=== PATIENT | male | born 1935 | race Two or more races ===

== ENCOUNTER 2022-04-17 09:15 | Day surgery (SDC) | payer OTHER ==
[2022-04-11 11:32] LABS: Absolute Lymphocytes (CBC) 1.1 K/uL (0.7-4.9); Hematocrit 39.5 % (39.6-49.0); Lymphocytes % 18.5 % (15.3-44.8); MCV 94.1 fL (80-100); MPV 8.9 fL (7.6-11.3)
[2022-04-11 11:33] LABS: Protime INR 1.1
[2022-04-11 11:43] LABS: Potassium 3.3 mmol/L (3.5-5.1)
[2022-04-17] MEDS ORDERED: NA CHLORIDE 0.9% 1,000 ML ONE (09:40)
[2022-04-17] MEDS ORDERED: CEFAZOLIN SODIUM 2 GM/VIAL ONE (09:40)
[2022-04-17] MEDS ORDERED: FENTANYL CITR 100 MCG/2 ML ONE (10:54)
[2022-04-17] MEDS ORDERED: ONDANSETRON 4 MG/2 ML VIAL ONE (10:55)
[2022-04-17] MEDS ORDERED: LIDOCAINE 1% MPF 5 ML VIAL ONE (10:55)
[2022-04-17] MEDS ORDERED: propofoL 200 MG/20 ML VIAL IV ONE (10:55)
[2022-04-17] MEDS ORDERED: PHENAZOPYRIDINE 100MG TAB PO ONE ×2 (11:24→12:57)
[2022-04-17] MEDS ORDERED: CODEINE 30MG/APAP 300MG TAB PO PRN (11:24)
[2022-04-17 12:50] VITALS: BP 143/79; TEMP 97.7; O2SAT 95
[2022-04-17] MEDS ORDERED: CODEINE 30MG/APAP 300MG TAB ONE (12:57)
--- NOTE | 2022-04-17 19:39 | OP ---
Surgeon: FABIOLA SOTELO Preoperative Diagnosis: Benign prostatic hypertrophy with lower urinary tract obstruction and sympto ms. Postoperative Diagnosis: Benign prostatic hypertrophy with lower urinary tract obstruction and sympt oms. Principal Procedure: Prostatic urethral lift/UroLift with 8 implants placed. Indication For Procedure: Mr. Snider is an 86-year-old gentleman with persistent irritative and obst ructive urinary symptoms refractory to triple medical therapy with both Flomax and finasteride as wel l as VESIcare. He was counseled on options to eliminate the obstruction and try to further improve h is LUTS and elected to proceed with the UroLift once he was determined to be a potential candidate. Procedure In Detail: The patient was consented in the preoperative holding area before being transfe rred to the operative suite, where general anesthesia was induced. He was given Ancef 2 g IV antimic robial prophylaxis and Pneumoboots were provided for DVT prophylaxis. He was placed in the lithotomy position, padded, secured to the table appropriately. His genitalia was prepped with Hibiclens and he was draped in standard fashion. The case was begun using the 20-Slovenian UroLift obturator to trave rse the urethra and into the bladder with ease. As had previously been noted, there was significant interdigitating lateral lobar hypertrophy as well as a slight median lobe with a sulcus present on th e right side. The lobe was not significantly intravesically projecting and was simply within the pro static urethra largely. As a result, I began by selecting the first implant site targeting the left anterolateral surface of his prostatic urethra about 1.5 cm distal to the bladder neck. The trigger was pulled deploying a needle containing the implant through the prostate before additional tensionin g before compression beyond the initial 10 degrees was performed in order to delivery of the needle a ll the way through the capsule of the prostate. A second hole of the trigger deployed the capsular t ab before the third pole performed additional tensioning of the suture and the device. The device wa s then angled back toward midline and advanced about 2 to 3 mm until the white of the monofilament wa s centered in the delivery Milam before the fourth trigger pole delivered the urethral implant to the m onofilament and severed the monofilament, tailoring the size of the monofilament accordingly. Visual survey revealed adequate tissue invagination of the implant with a margin of tissue between the impl ant and the bladder neck of at least 0.5 cm. As a result, I readvanced the delivery device into the bladder and switched it for a new urolith delivery device before placing a similar implant 1.5 cm dis nik to the bladder neck on the right side this time. I then placed 2 additional implants at the apex of the prostate at the level of the verumontanum on both the left and the right side successfully. I then observed the prostatic urethral channel using a visual obturator and determined there was some lateral lobar urethral lumen intrusion largely coming from the right lateral lobe in the mid gland p ortion of the prostate in addition to the residual median lobar tissue, which was largely emanating f rom the left side of his prostate. As a result, I placed an additional implant, this time the fifth, in the mid gland tissue anterolaterally on the right side, lateralizing that tissue accordingly. I then utilized a 6th implant targeting the median lobe and lateralizing it completely and successfully at the bladder neck with the 6th implant. I then surveyed the prostatic urethral channel again, and there was noted to be some anterolateral overhang largely emanating from the left side of the prosta te, so a seventh implant was targeted for that tissue between the bladder neck implant and the apical implant this time more anterior in order to further lift that anterior tissue. This was successfull y performed and did open the bladder neck nicely. Upon survey of the channel again using a visual ob turator, there was some residual tissue emanating from the left lateral surface of the prostate betwe en the apex in the mid gland; so a safe implant was placed into that tissue lateralizing it according ly and creating a nice continuous anterior channel from the verumontanum seen through into the bladde r with the bladder completely decompressed and fluid exiting from the scope. As a result, I was plea sed with the clinical appearance and in fact filled his bladder with saline before removing the scope with the visual obturator. I then passed a 20-Slovenian 2-way Jean Baptiste catheter into his bladder with eas e and placed 20 cc of sterile water in the balloon. The patient was then taken out of the lithotomy position, the catheter was connected to a leg bag, and he was awakened from general anesthesia before being transferred to a stretcher and then to the recovery room in good condition. Complications: None. Discharge Disposition: He will be discharged with a prescription for Bactrim as well as Tylenol with Codeine and Medrol DosePak given the significant detrusor instability he had preexisting in order to minimize the added irritative component of his LUTS. He will be instructed to monitor his urine and resume the Eliquis once the urine is persistently very light pink or clear for at least 24 hours. I f he is uncomfortable resuming it by Saturday or Saturday at the latest, he should notify me at my offi ce for evaluation promptly on Saturday. CAROLE/MODL Voice ID: [id number] Report ID: [id number]
== END 2022-04-17 13:40 | disposition home or self-care (01) ==
LOC: OR 09:15
PROVIDERS: ATTEND Urology
PROC: 3C1ZX8Z Irrigation of Indwelling Device using Irrigating Substance, External Approach (ICD-10-PCS; 2022-04-17)
PROC: 0T7D8DZ Dilation of Urethra with Intraluminal Device, Via Natural or Artificial Opening Endoscopic (ICD-10-PCS; principal; 2022-04-17 11:30)
DX: N40.1 Benign prostatic hyperplasia with lower urinary tract symptoms (principal); I10 Essential (primary) hypertension; E11.9 Type 2 diabetes mellitus without complications; I48.91 Unspecified atrial fibrillation; Z79.01 Long term (current) use of anticoagulants
CPT/HCPCS: 87088; 85025; 87086; 80048; 36415; 85610; 82947 ×2; 52441; 52442 ×7; 51700; J2704; J2001; J3010; J7030; J2405

== ENCOUNTER 2023-05-01 22:08 | Emergency (ER) | payer OTHER ==
--- OUTSIDE RECORDS SUMMARY | 2023-05-01 22:18 | XMS REPORT | Continuity of Care Document ---
Author Name Unknown Address [address] [facility] [address] th[address] Address [address] [facility] 1 [address] [place] [address] Care Team Providers Care Pick Up Attendant Name Role Phone Chris Arechiga Attending Clinician Unavailable Chris Arechiga Admitting Clinician Unavailable Payers Payer Name Policy Type Policy Number Effective Date Expirati on Date Source HUMAN MEDICARE C1 [id number] 2020 00:00:00 [facility] HUMAN MEDICARE C1 [id number] 2020 00:00:00 [facility] Problems Condition Name Condition Details Condition Category Status Onset Date Resolution Date Last Treatment Date Treating Clinician Comments Source Routine eye exam Routine eye exam Problem [facility] [id number] Primary osteoarthr itis of right knee Problem [facility] [id number] Primary osteoarthr itis of left knee Problem [facility] [id number] Type 2 diabetes mellitus with other diabetic kidney complicati on Problem [facility] [id number] Erectile dysfunctio n, unspecifie d erectile dysfunctio n type Problem [facility] Arthritis of both knees Arthritis of both knees Problem [facility] [id number] BPH loc w urin obs/LUTS Problem [facility] [id number] ED (erectile dysfunctio n) of organic origin Problem [facility] [id number] OAB (overactiv e bladder) Problem [facility] [id number] Benign prostatic hyperplasi a with lower urinary tract symptoms, symptom details unspecifie d Problem [facility] [id number] Type 2 diabetes mellitus with hyperglyce christopher, without long-term current use of insulin Problem [facility] [id number] Mixed hyperlipid emia Problem [facility] [id number] Dependence on other enabling machines and devices Problem [facility] [id number] Essential (primary) hypertensi on Problem [facility] [id number] Paroxysmal atrial fibrillati on Problem [facility] [id number] Thrombocyt openia Problem [facility] [id number] Obstructiv e sleep apnea (adult) (pediatric ) Problem [facility] [id number] Primary osteoarthr itis of both knees Problem [facility] [id number] terminal makeup operator (current) use of insulin Problem [facility] [id number] Urinary tract infection, site not specified Problem [facility] [id number] Enterococc us as the cause of diseases classified elsewhere Problem [facility] Social History Social Habit Start Date Stop Date Quantity Comments Source History of Tobacco Use [facility] Sex Assigned At [facility] Smoking Status Start Date Stop Date Source Never Smoker [facility] Medications Ordered Medication Name Filled Medication Name Start Date Stop Date Current Medication? Ordering Clinician Indication Dosage Frequency Signature (SIG) Comments Components Source Bupivicaine [place] Bupivicaine [place] 06-15 00:00: 00 No 2.5mg [facility] Kenalog (Triamcinol one) Kenalog (Triamcinol one) 06-15 00:00: 00 No 40mg [facility] Bupivicaine [place] Bupivicaine [place] 06-15 00:00: 00 No 2.5mg [facility] Kenalog (Triamcinol one) Kenalog (Triamcinol one) 06-15 00:00: 00 No [facility]mg [facility] Bupivicaine [place] Bupivicaine [place] 06-15 00:00: 00 No 2.5mg [facility] Kenalog (Triamcinol one) Kenalog (Triamcinol one) 06-15 00:00: 00 No 40mg [facility] Bupivicaine [place] Bupivicaine [place] 06-15 00:00: 00 No 2.5mg [facility] Kenalog (Triamcinol one) Kenalog (Triamcinol one) 06-15 00:00: 00 No 40mg [facility] Bupivicaine [place] Bupivicaine [place] 06-15 00:00: 00 No 2.5mg [facility] Kenalog (Triamcinol one) Kenalog (Triamcinol one) 06-15 00:00: 00 No 40mg [facility] Bupivicaine [place] Bupivicaine [place] 06-15 00:00: 00 No 2.5mg [facility] Kenalog (Triamcinol one) Kenalog (Triamcinol one) 06-15 00:00: 00 No 40mg [facility] Bupivicaine [place] Bupivicaine [place] 06-15 00:00: 00 No 2.5mg [facility] Kenalog (Triamcinol one) Kenalog (Triamcinol one) 06-15 00:00: 00 No 40mg [facility] Bupivicaine [place] Bupivicaine [place] 0 06-15 00:00: 00 No 2.5mg [facility] Kenalog (Triamcinol one) Kenalog (Triamcinol one) 06-15 00:00: 00 No 40mg [facility] Bupivicaine [place] Bupivicaine [place] 0 1-20 00:00: 00 No 2.5mg [facility] Kenalog (Triamcinol one) Kenalog (Triamcinol one) 0 1-20 00:00: 00 No 40mg [facility] Bupivicaine [place] Bupivicaine [place] 0 1-20 00:00: 00 No 2.5mg [facility] Kenalog (Triamcinol one) Kenalog (Triamcinol one) 0 1-20 00:00: 00 No 40mg [facility] Augmentin 500-125 MG Augmentin 500-125 MG 2021-05 2-07 00:00: 00 05-16 00:00 :00 No 1{table t} TID Augmentin 500-125 MG Augmentin 500-125 MG Augmentin 500-125 MG 2021-05 2-07 00:00: 00 05-16 00:00 :00 No 1{table t} TID Augmentin 500-125 MG Orthovisc Orthovisc 2-0 8-18 00:00: 00 No 15mg [facility] Orthovisc Orthovisc 2-0 8-18 00:00: 00 No 15mg [facility] OrthoVisc OrthoVisc 2-0 8-18 00:00: 00 No 15mg [facility] OrthoVisc OrthoVisc 2-0 8-18 00:00: 00 No 15mg [facility] Orthovisc Orthovisc 2-0 8-18 00:00: 00 No 15mg [facility] OrthoVisc OrthoVisc 2-0 8-18 00:00: 00 No 15mg [facility] OrthoVisc OrthoVisc 2-0 8-18 00:00: 00 No 15mg [facility] OrthoVisc OrthoVisc 2-0 8-18 00:00: 00 No 15mg [facility] OrthoVisc OrthoVisc 2022-0 8-18 00:00: 00 No 15mg [facility] OrthoVisc OrthoVisc 2-0 8-18 00:00: 00 No 15mg [facility] Orthovisc Orthovisc 2-0 8-18 00:00: 00 No 15mg [facility] Orthovisc Orthovisc 2022-0 8-18 00:00: 00 No 15mg [facility] Orthovisc Orthovisc 2022-0 8-18 00:00: 00 No 15mg [facility] Orthovisc Orthovisc 2-0 8-18 00:00: 00 No 15mg [facility] Orthovisc Orthovisc 2022-0 8-18 00:00: 00 No 15mg [facility] Orthovisc Orthovisc 2022-0 8-18 00:00: 00 No 15mg [facility] Orthovisc Orthovisc 2022-0 8-18 00:00: 00 No 15mg [facility] Orthovisc Orthovisc 2022-0 8-18 00:00: 00 No 15mg [facility] Orthovisc Orthovisc 2022-0 8-18 00:00: 00 No 15mg [facility] Orthovisc Orthovisc 2022-0 8-18 00:00: 00 No 15mg [facility] Orthovisc Orthovisc 2022-0 8-18 00:00: 00 No 15mg [facility] Orthovisc Orthovisc 2022-0 8-18 00:00: 00 No 15mg [facility] Orthovisc Orthovisc 2022-0 8-18 00:00: 00 No 15mg [facility] Orthovisc Orthovisc 2022-0 8-18 00:00: 00 No 15mg [facility] Orthovisc Orthovisc 2022-0 8-11 00:00: 00 No 15mg [facility] Orthovisc Orthovisc 2022-0 8-11 00:00: 00 No 15mg [facility] OrthoVisc OrthoVisc 2-0 8-11 00:00: 00 No 15mg [facility] OrthoVisc OrthoVisc 2-0 8-11 00:00: 00 No 15mg [facility] Orthovisc Orthovisc 2-0 8-11 00:00: 00 No 15mg [facility] OrthoVisc OrthoVisc 2-0 8-11 00:00: 00 No 15mg [facility] OrthoVisc OrthoVisc 2-0 8-11 00:00: 00 No 15mg [facility] OrthoVisc OrthoVisc 2-0 8-11 00:00: 00 No 15mg [facility] OrthoVisc OrthoVisc 2022-0 8-11 00:00: 00 No 15mg [facility] OrthoVisc OrthoVisc 2-0 8-11 00:00: 00 No 15mg [facility] Orthovisc Orthovisc 2022-0 8-11 00:00: 00 No 15mg [facility] Orthovisc Orthovisc 2-0 8-11 00:00: 00 No 15mg [facility] Orthovisc Orthovisc 2022-0 8-11 00:00: 00 No 15mg [facility] Orthovisc Orthovisc 2022-0 8-11 00:00: 00 No 15mg [facility] Orthovisc Orthovisc 2022-0 8-11 00:00: 00 No 15mg [facility] Orthovisc Orthovisc 2-0 8-11 00:00: 00 No 15mg [facility] Orthovisc Orthovisc 2022-0 8-11 00:00: 00 No 15mg [facility] Orthovisc Orthovisc 2022-0 8-11 00:00: 00 No 15mg [facility] Orthovisc Orthovisc 2021-0 8-11 00:00: 00 No 15mg [facility] Orthovisc Orthovisc 2021-0 8-11 00:00: 00 No 15mg [facility] Orthovisc Orthovisc 2021-0 8-11 00:00: 00 No 15mg [facility] Orthovisc Orthovisc 2021-0 8-11 00:00: 00 No 15mg [facility] Orthovisc Orthovisc 2021-0 8-11 00:00: 00 No 15mg [facility] Orthovisc Orthovisc 0 8-11 00:00: 00 No 15mg [facility] Orthovisc Orthovisc 2021-0 8-11 00:00: 00 No 15mg [facility] Bupivicaine [place] Bupivicaine [place] 2021-0 8-04 00:00: 00 No 2.5mg [facility] Orthovisc Orthovisc 2021-0 8-04 00:00: 00 No 30mg [facility] Kenalog (Triamcinol one) Kenalog (Triamcinol one) 2021-0 8-04 00:00: 00 No 40mg [facility] Bupivicaine [place] Bupivicaine [place] 2021-0 8-04 00:00: 00 No 2.5mg [facility] Orthovisc Orthovisc 2-0 8-04 00:00: 00 No 30mg [facility] Kenalog (Triamcinol one) Kenalog (Triamcinol one) 2021-0 8-04 00:00: 00 No 40mg [facility] Bupivicaine [place] Bupivicaine [place] 2-0 8-04 00:00: 00 No 2.5mg [facility] OrthoVisc OrthoVisc 2-0 8-04 00:00: 00 No 30mg [facility] Kenalog (Triamcinol one) Kenalog (Triamcinol one) 0 8- 00:00: 00 No 40mg [facility] Bupivicaine [place] Bupivicaine [place] 0 8- 00:00: 00 No 2.5mg [facility] OrthoVisc OrthoVisc 0 8- 00:00: 00 No 30mg [facility] Orthovisc Orthovisc 0 8- 00:00: 00 No 30mg [facility] Kenalog (Triamcinol one) Kenalog (Triamcinol one) 0 8- 00:00: 00 No 40mg [facility] Bupivicaine [place] Bupivicaine [place] 0 8- 00:00: 00 No 2.5mg [facility] Bupivicaine [place] Bupivicaine [place] 0 8- 00:00: 00 No 2.5mg [facility] OrthoVisc OrthoVisc 0 8- 00:00: 00 No 30mg [facility] Kenalog (Triamcinol one) Kenalog (Triamcinol one) 0 8- 00:00: 00 No 40mg [facility] Kenalog (Triamcinol one) Kenalog (Triamcinol one) 0 8- 00:00: 00 No 40mg [facility] Bupivicaine [place] Bupivicaine [place] 0 8- 00:00: 00 No 2.5mg [facility] OrthoVisc OrthoVisc 0 8- 00:00: 00 No 30mg [facility] Kenalog (Triamcinol one) Kenalog (Triamcinol one) 0 8- 00:00: 00 No 40mg [facility] Bupivicaine [place] Bupivicaine [place] 12-28 00:00: 00 No 2.5mg [facility] OrthoVisc OrthoVisc 0 8- 00:00: 00 No 30mg [facility] Kenalog (Triamcinol one) Kenalog (Triamcinol one) 0 8- 00:00: 00 No 40mg [facility] Bupivicaine [place] Bupivicaine [place] 8 00:00: 00 No 2.5mg [facility] OrthoVisc OrthoVisc 0 8- 00:00: 00 No 30mg [facility] Kenalog (Triamcinol one) Kenalog (Triamcinol one) 12-28 00:00: 00 No 40mg [facility] Bupivicaine [place] Bupivicaine [place] 12-28 00:00: 00 No 2.5mg [facility] OrthoVisc OrthoVisc 8- 00:00: 00 No 30mg [facility] Kenalog (Triamcinol one) Kenalog (Triamcinol one) 12-28 00:00: 00 No 40mg [facility] Orthovisc Orthovisc 0 12-28 00:00: 00 No 30mg [facility] Bupivicaine [place] Bupivicaine [place] 12-28 00:00: 00 No 2.5mg [facility] Kenalog (Triamcinol one) Kenalog (Triamcinol one) 8- 00:00: 00 No 40mg [facility] Orthovisc Orthovisc 0 8- 00:00: 00 No 30mg [facility] Bupivicaine [place] Bupivicaine [place] 0 8- 00:00: 00 No 2.5mg [facility] Kenalog (Triamcinol one) Kenalog (Triamcinol one) 12-28 00:00: 00 No 40mg [facility] Orthovisc Orthovisc 0 8- 00:00: 00 No 30mg [facility] Bupivicaine [place] Bupivicaine [place] 0 8 00:00: 00 No 2.5mg [facility] Kenalog (Triamcinol one) Kenalog (Triamcinol one) 0 8- 00:00: 00 No 40mg [facility] Orthovisc Orthovisc 0 8 00:00: 00 No 30mg [facility] Bupivicaine [place] Bupivicaine [place] 8 00:00: 00 No 2.5mg [facility] Kenalog (Triamcinol one) Kenalog (Triamcinol one) 8 00:00: 00 No 40mg [facility] Orthovisc Orthovisc 0 8 00:00: 00 No 30mg [facility] Bupivicaine [place] Bupivicaine [place] 12-28 00:00: 00 No 2.5mg [facility] Kenalog (Triamcinol one) Kenalog (Triamcinol one) 8 00:00: 00 No 40mg [facility] Orthovisc Orthovisc 0 8- 00:00: 00 No 30mg [facility] Bupivicaine [place] Bupivicaine [place] 0 8- 00:00: 00 No 2.5mg [facility] Kenalog (Triamcinol one) Kenalog (Triamcinol one) 0 8- 00:00: 00 No 40mg [facility] Orthovisc Orthovisc 0 8- 00:00: 00 No 30mg [facility] Bupivicaine [place] Bupivicaine [place] 12-28 00:00: 00 No 2.5mg [facility] Kenalog (Triamcinol one) Kenalog (Triamcinol one) 12-28 00:00: 00 No 40mg [facility] Orthovisc Orthovisc 12-28 00:00: 00 No 30mg [facility] Bupivicaine [place] Bupivicaine [place] 12-28 00:00: 00 No 2.5mg [facility] Kenalog (Triamcinol one) Kenalog (Triamcinol one) 12-28 00:00: 00 No 40mg [facility] Orthovisc Orthovisc 12-28 00:00: 00 No 30mg [facility] Bupivicaine [place] Bupivicaine [place] 12-28 00:00: 00 No 2.5mg [facility] Kenalog (Triamcinol one) Kenalog (Triamcinol one) 12-28 00:00: 00 No 40mg [facility] Orthovisc Orthovisc 12-28 00:00: 00 No 30mg [facility] Bupivicaine [place] Bupivicaine [place] 12-28 00:00: 00 No 2.5mg [facility] Kenalog (Triamcinol one) Kenalog (Triamcinol one) 12-28 00:00: 00 No 40mg [facility] Orthovisc Orthovisc 0 8 00:00: 00 No 30mg [facility] Bupivicaine [place] Bupivicaine [place] 0 12-28 00:00: 00 No 2.5mg [facility] Kenalog (Triamcinol one) Kenalog (Triamcinol one) 8- 00:00: 00 No 40mg [facility] Orthovisc Orthovisc 0 - 00:00: 00 No 30mg [facility] Bupivicaine [place] Bupivicaine [place] 12-28 00:00: 00 No 2.5mg [facility] Kenalog (Triamcinol one) Kenalog (Triamcinol one) 8- 00:00: 00 No 40mg [facility] Orthovisc Orthovisc 0 8- 00:00: 00 No 30mg [facility] Orthovisc Orthovisc 0 8 00:00: 00 No 30mg [facility] Bupivicaine [place] Bupivicaine [place] 12-28 00:00: 00 No 2.5mg [facility] Bupivicaine [place] Bupivicaine [place] 12-28 00:00: 00 No 2.5mg [facility] Kenalog (Triamcinol one) Kenalog (Triamcinol one) - 00:00: 00 No 40mg [facility] Kenalog (Triamcinol one) Kenalog (Triamcinol one) 12-28 00:00: 00 No 40mg [facility] Orthovisc Orthovisc 0 8- 00:00: 00 No 30mg [facility] Bupivicaine [place] Bupivicaine [place] 0 12-28 00:00: 00 No 2.5mg [facility] Kenalog (Triamcinol one) Kenalog (Triamcinol one) 0 8- 00:00: 00 No 40mg [facility] Orthovisc Orthovisc 0 8- 00:00: 00 No 30mg [facility] Bupivicaine [place] Bupivicaine [place] 0 8- 00:00: 00 No 2.5mg [facility] Kenalog (Triamcinol one) Kenalog (Triamcinol one) 0 8-04 00:00: 00 No 40mg [facility] Bupivicaine [place] Bupivicaine [place] 0 8-04 00:00: 00 No 2.5mg [facility] Orthovisc Orthovisc 0 8-04 00:00: 00 No 30mg [facility] Kenalog (Triamcinol one) Kenalog (Triamcinol one) 0 8-04 00:00: 00 No 40mg [facility] Tadalafil 20 MG Tadalafil 20 MG 2-0 7- 00:00: 00 07-19 00:00 :00 No Tadalafil 20 MG Tadalafil 20 MG Tadalafil 20 MG 2-0 - 00:00: 00 07-19 00:00 :00 No Tadalafil 20 MG Tadalafil 20 MG Tadalafil 20 MG 2-0 7-28 00:00: 00 07-19 00:00 :00 No Tadalafil 20 MG Tadalafil 20 MG Tadalafil 20 MG 2-0 7-28 00:00: 00 07-19 00:00 :00 No Tadalafil 20 MG Tadalafil 20 MG Tadalafil 20 MG 2-0 7-28 00:00: 00 07-19 00:00 :00 No Tadalafil 20 MG Tadalafil 20 MG Tadalafil 20 MG 2-0 7-28 00:00: 00 07-19 00:00 :00 No Tadalafil 20 MG Tadalafil 20 MG Tadalafil 20 MG 2-0 7-28 00:00: 00 07-19 00:00 :00 No Tadalafil 20 MG Tadalafil 20 MG Tadalafil 20 MG 2-0 -28 00:00: 00 07-19 00:00 :00 No Tadalafil 20 MG Tadalafil 20 MG Tadalafil 20 MG 2-0 -28 00:00: 00 07-19 00:00 :00 No Tadalafil 20 MG Tadalafil 20 MG Tadalafil 20 MG 2-0 7- 00:00: 00 07-19 00:00 :00 No Tadalafil 20 MG Tadalafil 20 MG Tadalafil 20 MG 2-0 12-21 00:00: 00 07-19 00:00 :00 No Tadalafil 20 MG Tadalafil 20 MG Tadalafil 20 MG 2-0 12-21 00:00: 00 07-19 00:00 :00 No Tadalafil 20 MG Tadalafil 20 MG Tadalafil 20 MG 2-0 - 00:00: 00 07-19 00:00 :00 No Tadalafil 20 MG Tadalafil 20 MG Tadalafil 20 MG 2-0 12-21 00:00: 00 07-19 00:00 :00 No Tadalafil 20 MG Tadalafil 20 MG Tadalafil 20 MG 2-0 12-21 00:00: 00 07-19 00:00 :00 No Tadalafil 20 MG Tadalafil 20 MG Tadalafil 20 MG 2-0 12-21 00:00: 00 07-19 00:00 :00 No Tadalafil 20 MG Tadalafil 20 MG Tadalafil 20 MG 2-0 7- 00:00: 00 07-19 00:00 :00 No Tadalafil 20 MG Tadalafil 20 MG Tadalafil 20 MG 2021-0 12-21 00:00: 00 07-19 00:00 :00 No Tadalafil 20 MG Tadalafil 20 MG Tadalafil 20 MG 2-0 7 00:00: 00 07-19 00:00 :00 No Tadalafil 20 MG Tadalafil 20 MG Tadalafil 20 MG 2-0 7- 00:00: 00 07-19 00:00 :00 No Tadalafil 20 MG Tadalafil 20 MG Tadalafil 20 MG 2-0 12-21 00:00: 00 07-19 00:00 :00 No Tadalafil 20 MG Solifenacin Succinate 5 MG Solifenacin Succinate 5 MG 2-0 - 00:00: 00 07-05 00:00 :00 No 1{table t} QD Solifenaci n Succinate 5 MG Solifenacin Succinate 5 MG Solifenacin Succinate 5 MG 2-0 7-28 00:00: 00 07-05 00:00 :00 No 1{table t} QD Solifenaci n Succinate 5 MG Solifenacin Succinate 5 MG Solifenacin Succinate 5 MG 2-0 7-28 00:00: 00 07-05 00:00 :00 No 1{table t} QD Solifenaci n Succinate 5 MG Solifenacin Succinate 5 MG Solifenacin Succinate 5 MG 2-0 7-28 00:00: 00 07-05 00:00 :00 No 1{table t} QD Solifenaci n Succinate 5 MG Solifenacin Succinate 5 MG Solifenacin Succinate 5 MG 2-0 7-28 00:00: 00 07-05 00:00 :00 No 1{table t} QD Solifenaci n Succinate 5 MG Solifenacin Succinate 5 MG Solifenacin Succinate 5 MG 2-0 7-28 00:00: 00 07-05 00:00 :00 No 1{table t} QD Solifenaci n Succinate 5 MG Solifenacin Succinate 5 MG Solifenacin Succinate 5 MG 2021-0 7-28 00:00: 00 07-05 00:00 :00 No 1{table t} QD Solifenaci n Succinate 5 MG Solifenacin Succinate 5 MG Solifenacin Succinate 5 MG 2-0 7-28 00:00: 00 07-05 00:00 :00 No 1{table t} QD Solifenaci n Succinate 5 MG Solifenacin Succinate 5 MG Solifenacin Succinate 5 MG 2-0 7-28 00:00: 00 07-05 00:00 :00 No 1{table t} QD Solifenaci n Succinate 5 MG Solifenacin Succinate 5 MG Solifenacin Succinate 5 MG 2-0 7-28 00:00: 00 07-05 00:00 :00 No 1{table t} QD Solifenaci n Succinate 5 MG Solifenacin Succinate 5 MG Solifenacin Succinate 5 MG 2022-0 28 00:00: 00 07-05 00:00 :00 No 1{table t} QD Solifenaci n Succinate 5 MG Solifenacin Succinate 5 MG Solifenacin Succinate 5 MG 2-0 -28 00:00: 00 07-05 00:00 :00 No 1{table t} QD Solifenaci n Succinate 5 MG Solifenacin Succinate 5 MG Solifenacin Succinate 5 MG 2-0 12-21 00:00: 00 04-20 00:00 :00 No 1{table t} QD Solifenaci n Succinate 5 MG Solifenacin Succinate 5 MG Solifenacin Succinate 5 MG 2-0 12-21 00:00: 00 04-20 00:00 :00 No 1{table t} QD Solifenaci n Succinate 5 MG Solifenacin Succinate 5 MG Solifenacin Succinate 5 MG 2021-0 12-21 00:00: 00 04-20 00:00 :00 No 1{table t} QD Solifenaci n Succinate 5 MG Solifenacin Succinate 5 MG Solifenacin Succinate 5 MG 2021-0 12-21 00:00: 00 04-20 00:00 :00 No 1{table t} QD Solifenaci n Succinate 5 MG Solifenacin Succinate 5 MG Solifenacin Succinate 5 MG 2021-0 12-21 00:00: 00 04-20 00:00 :00 No 1{table t} QD Solifenaci n Succinate 5 MG Solifenacin Succinate 5 MG Solifenacin Succinate 5 MG 2021-0 28 00:00: 00 04-20 00:00 :00 No 1{table t} QD Solifenaci n Succinate 5 MG Solifenacin Succinate 5 MG Solifenacin Succinate 5 MG 2021-0 28 00:00: 00 04-20 00:00 :00 No 1{table t} QD Solifenaci n Succinate 5 MG Solifenacin Succinate 5 MG Solifenacin Succinate 5 MG 2-0 -28 00:00: 00 04-20 00:00 :00 No 1{table t} QD Solifenaci n Succinate 5 MG Solifenacin Succinate 5 MG Solifenacin Succinate 5 MG 2022-0 12-21 00:00: 00 04-20 00:00 :00 No 1{table t} QD Solifenaci n Succinate 5 MG Flomax 0.4 MG Flomax 0.4 MG 2022-0 09-22 00:00: 00 No 2{capsu les} QD Flomax 0.4 MG Flomax 0.4 MG Flomax 0.4 MG 2022-0 09-22 00:00: 00 No 2{capsu les} QD Flomax 0.4 MG Flomax 0.4 MG Flomax 0.4 MG 2022-0 09-22 00:00: 00 No 2{capsu les} QD Flomax 0.4 MG Flomax 0.4 MG Flomax 0.4 MG 2022-0 09-22 00:00: 00 No 2{capsu les} QD Flomax 0.4 MG Flomax 0.4 MG Flomax 0.4 MG 2022-0 09-22 00:00: 00 No 2{capsu les} QD Flomax 0.4 MG Flomax 0.4 MG Flomax 0.4 MG 2022-0 09-22 00:00: 00 No 2{capsu les} QD Flomax 0.4 MG Flomax 0.4 MG Flomax 0.4 MG 2-0 09-22 00:00: 00 No 2{capsu les} QD Flomax 0.4 MG Flomax 0.4 MG Flomax 0.4 MG 2022-0 09-22 00:00: 00 No 2{capsu les} QD Flomax 0.4 MG Flomax 0.4 MG Flomax 0.4 MG 2022-0 09-22 00:00: 00 No 2{capsu les} QD Flomax 0.4 MG Flomax 0.4 MG Flomax 0.4 MG 2022-0 09-22 00:00: 00 No 2{capsu les} QD Flomax 0.4 MG Flomax 0.4 MG Flomax 0.4 MG 2022-0 09-22 00:00: 00 No 2{capsu les} QD Flomax 0.4 MG Flomax 0.4 MG Flomax 0.4 MG 2022-0 09-22 00:00: 00 No 2{capsu les} QD Flomax 0.4 MG Flomax 0.4 MG Flomax 0.4 MG 2-0 29 00:00: 00 No 2{capsu les} QD Flomax 0.4 MG Flomax 0.4 MG Flomax 0.4 MG 2-0 09-22 00:00: 00 No 2{capsu les} QD Flomax 0.4 MG Flomax 0.4 MG Flomax 0.4 MG 2-0 09-22 00:00: 00 03-02 00:00 :00 No 2{capsu les} QD Flomax 0.4 MG Flomax 0.4 MG Flomax 0.4 MG 2-0 09-22 00:00: 00 03-02 00:00 :00 No 2{capsu les} QD Flomax 0.4 MG Flomax 0.4 MG Flomax 0.4 MG 2-0 09-22 00:00: 00 03-02 00:00 :00 No 2{capsu les} QD Flomax 0.4 MG Flomax 0.4 MG Flomax 0.4 MG 2-0 09-22 00:00: 00 03-02 00:00 :00 No 2{capsu les} QD Flomax 0.4 MG Flomax 0.4 MG Flomax 0.4 MG 2-0 09-22 00:00: 00 03-02 00:00 :00 No 2{capsu les} QD Flomax 0.4 MG Flomax 0.4 MG Flomax 0.4 MG 2-0 09-22 00:00: 00 03-02 00:00 :00 No 2{capsu les} QD Flomax 0.4 MG Flomax 0.4 MG Flomax 0.4 MG 2-0 09-22 00:00: 00 03-02 00:00 :00 No 2{capsu les} QD Flomax 0.4 MG Flomax 0.4 MG Flomax 0.4 MG 2-0 09-22 00:00: 00 03-02 00:00 :00 No 2{capsu les} QD Flomax 0.4 MG Flomax 0.4 MG Flomax 0.4 MG 2-0 4- 00:00: 00 03-02 00:00 :00 No 2{capsu les} QD Flomax 0.4 MG Flomax 0.4 MG Flomax 0.4 MG 2-0 09-22 00:00: 03-02 00:00 :00 No 2{capsu les} QD Flomax 0.4 MG Flomax 0.4 MG Flomax 0.4 MG 2-0 09-22 00:00: 03-02 00:00 :00 No 2{capsu les} QD Flomax 0.4 MG Flomax 0.4 MG Flomax 0.4 MG 2-0 09-22 00:00: 03-02 00:00 :00 No 2{capsu les} QD Flomax 0.4 MG Tadalafil 20 MG Tadalafil 20 MG 2-0 4 00:00: 00 04-19 00:00 :00 No Tadalafil 20 MG Tadalafil 20 MG Tadalafil 20 MG 2-0 4-29 00:00: 00 04-19 00:00 :00 No Tadalafil 20 MG Tadalafil 20 MG Tadalafil 20 MG 2-0 4- 00:00: 00 04-19 00:00 :00 No Tadalafil 20 MG Tadalafil 20 MG Tadalafil 20 MG 2-0 4-29 00:00: 00 04-19 00:00 :00 No Tadalafil 20 MG Tadalafil 20 MG Tadalafil 20 MG 2-0 4-29 00:00: 00 04-19 00:00 :00 No Tadalafil 20 MG Tadalafil 20 MG Tadalafil 20 MG 2-0 4-29 00:00: 00 04-19 00:00 :00 No Tadalafil 20 MG Tadalafil 20 MG Tadalafil 20 MG 2-0 4- 00:00: 00 04-19 00:00 :00 No Tadalafil 20 MG Tadalafil 20 MG Tadalafil 20 MG 2-0 4- 00:00: 00 04-19 00:00 :00 No Tadalafil 20 MG Tadalafil 20 MG Tadalafil 20 MG 2022-0 4-29 00:00: 00 04-19 00:00 :00 No Tadalafil 20 MG Tadalafil 20 MG Tadalafil 20 MG 2022-0 4-29 00:00: 00 04-19 00:00 :00 No Tadalafil 20 MG Tadalafil 20 MG Tadalafil 20 MG 2-0 4-29 00:00: 00 04-19 00:00 :00 No Tadalafil 20 MG Tadalafil 20 MG Tadalafil 20 MG 2-0 4-29 00:00: 00 04-19 00:00 :00 No Tadalafil 20 MG Tadalafil 20 MG Tadalafil 20 MG 2-0 4-29 00:00: 00 04-19 00:00 :00 No Tadalafil 20 MG Tadalafil 20 MG Tadalafil 20 MG 2-0 4-29 00:00: 00 04-19 00:00 :00 No Tadalafil 20 MG Tadalafil 20 MG Tadalafil 20 MG 2-0 4-29 00:00: 00 04-19 00:00 :00 No Tadalafil 20 MG Tadalafil 20 MG Tadalafil 20 MG 2-0 4-29 00:00: 00 04-19 00:00 :00 No Tadalafil 20 MG Tadalafil 20 MG Tadalafil 20 MG 2-0 4-29 00:00: 00 04-19 00:00 :00 No Tadalafil 20 MG Tadalafil 20 MG Tadalafil 20 MG 2-0 4-29 00:00: 00 04-19 00:00 :00 No Tadalafil 20 MG Tadalafil 20 MG Tadalafil 20 MG 2-0 4-29 00:00: 00 04-19 00:00 :00 No Tadalafil 20 MG Amoxicillin -Pot Clavulanate 500-125 MG Amoxicillin -Pot Clavulanate 500-125 MG 2020- 2-14 00:00: 00 05-14 00:00 :00 No 1{table t} BID Amoxicilli n-Pot Clavulanat e 500-125 MG Tamsulosin HCl 0.4 MG Tamsulosin HCl 0.4 MG 2020-05 00:00: 00 08-01 00:00 :00 No 1{capsu le} QD Tamsulosin HCl 0.4 MG Tamsulosin HCl 0.4 MG Tamsulosin HCl 0.4 MG 2020-05 00:00: 00 08-01 00:00 :00 No 1{capsu le} QD Tamsulosin HCl 0.4 MG Tamsulosin HCl 0.4 MG Tamsulosin HCl 0.4 MG 2020-05 00:00: 00 08-01 00:00 :00 No 1{capsu le} QD Tamsulosin HCl 0.4 MG Tamsulosin HCl 0.4 MG Tamsulosin HCl 0.4 MG 2020-05 00:00: 00 08-01 00:00 :00 No 1{capsu le} QD Tamsulosin HCl 0.4 MG Tamsulosin HCl 0.4 MG Tamsulosin HCl 0.4 MG 2020-05 00:00: 00 05-25 00:00 :00 No 1{capsu le} QD Tamsulosin HCl 0.4 MG Tamsulosin HCl 0.4 MG Tamsulosin HCl 0.4 MG 2020-05 00:00: 00 05-25 00:00 :00 No 1{capsu le} QD Tamsulosin HCl 0.4 MG Spironolact one Spironolact one No Spironolac tone Carvedilol 25 MG Carvedilol 25 MG No 1{table t_with_ food} BID Carvedilol 25 MG Vitamin B12 Vitamin B12 No Vi tamin B12 metFORMIN HCl ER 500 MG metFORMIN HCl ER 500 MG No 1{table t_with_ evening _meal} QD metFORMIN HCl ER 500 MG Vitamin C Vitamin C No Vitamin C Vitamin D3 Vitamin D3 No Vitamin D3 Eliquis 5 MG Eliquis 5 MG No 1{table t} BID Eliquis 5 MG Vitamin C Vitamin C No Vitamin C Tamsulosin HCl 0.4 MG Tamsulosin HCl 0.4 MG No Tamsulosin HCl 0.4 MG Chlorthalid one 50 MG Chlorthalid one 50 MG No 1{table t_in_ e_sammni ng_with _food} QD Chlorthali done 50 MG Losartan Potassium 50 MG Losartan Potassium 50 MG No Losartan Potassium 50 MG Losartan Potassium 50 MG Losartan Potassium 50 MG No 1{table t} QD Losartan Potassium 50 MG Losartan Potassium 50 MG Losartan Potassium 50 MG No Losartan Potassium 50 MG Spironolact one Spironolact one No Spironolac tone Eliquis 5 MG Eliquis 5 MG No 1{table t} BID Eliquis 5 MG Losartan Potassium 50 MG Losartan Potassium 50 MG No Losartan Potassium 50 MG Losartan Potassium 50 MG Losartan Potassium 50 MG No 1{table t} QD Losartan Potassium 50 MG Tamsulosin HCl 0.4 MG Tamsulosin HCl 0.4 MG No Tamsulosin HCl 0.4 MG Eliquis 2.5 MG Eliquis 2.5 MG No 1{table t} BID Eliquis 2.5 MG Vitamin B12 Vitamin B12 No Vi tamin B12 metFORMIN HCl ER 500 MG metFORMIN HCl ER 500 MG No 1{table t_with_ evening _meal} QD metFORMIN HCl ER 500 MG Chlorthalid one 50 MG Chlorthalid one 50 MG No 1{table t_in e_morni ng_with _food} QD Chlorthali done 50 MG Carvedilol 25 MG Carvedilol 25 MG No 1{table t_with_ food} BID Carvedilol 25 MG Vitamin C Vitamin C No Vitamin C Vitamin D3 Vitamin D3 No Vitamin D3 Vitamin D3 Vitamin D3 No Vitamin D3 Chlorthalid one 50 MG Chlorthalid one 50 MG No 1{table t_in e_morni ng_with _food} QD Chlorthali done 50 MG Vitamin D3 Vitamin D3 No Vitamin D3 Carvedilol 25 MG Carvedilol 25 MG No 1{table t_with_ food} BID Carvedilol 25 MG Vitamin B12 Vitamin B12 No Vi tamin B12 Tamsulosin HCl 0.4 MG Tamsulosin HCl 0.4 MG No Tamsulosin HCl 0.4 MG Chlorthalid one 50 MG Chlorthalid one 50 MG No 1{table t_in e_morni ng_with _food} QD Chlorthali done 50 MG Carvedilol 25 MG Carvedilol 25 MG No 1{table t_with_ food} BID Carvedilol 25 MG metFORMIN HCl ER 500 MG metFORMIN HCl ER 500 MG No 1{table t_with_ evening _meal} QD metFORMIN HCl ER 500 MG Spironolact one 25 MG Spironolact one 25 MG No 1{table t} Spironolac tone 25 MG Eliquis 5 MG Eliquis 5 MG No 1{table t} BID Eliquis 5 MG Carvedilol 25 MG Carvedilol 25 MG No 1{table t_with_ food} BID Carvedilol 25 MG Vitamin D3 Vitamin D3 No Vitamin D3 Carvedilol 25 MG Carvedilol 25 MG No 1{table t_with_ food} BID Carvedilol 25 MG Vitamin B12 Vitamin B12 No Vi tamin B12 metFORMIN HCl ER 500 MG metFORMIN HCl ER 500 MG No 1{table t_with_ evening _meal} QD metFORMIN HCl ER 500 MG Spironolact one 25 MG Spironolact one 25 MG No 1{table t} Spironolac tone 25 MG Chlorthalid one 50 MG Chlorthalid one 50 MG No 1{table t_in_th e_morni ng_with _food} QD Chlorthali done 50 MG Carvedilol 25 MG Carvedilol 25 MG No 1{table t_with_ food} BID Carvedilol 25 MG Vitamin B12 Vitamin B12 No Vi tamin B12 Solifenacin Succinate 5 MG Solifenacin Succinate 5 MG No Solifenaci n Succinate 5 MG Eliquis 5 MG Eliquis 5 MG No 1{table t} BID Eliquis 5 MG Carvedilol 25 MG Carvedilol 25 MG No Carvedilol 25 MG Vitamin D3 Vitamin D3 No Vitamin D3 Eliquis 5 MG Eliquis 5 MG No 1{table t} BID Eliquis 5 MG Spironolact one 25 MG Spironolact one 25 MG No 1{table t} Spironolac tone 25 MG Solifenacin Succinate 5 MG Solifenacin Succinate 5 MG No Solifenaci n Succinate 5 MG Chlorthalid one 50 MG Chlorthalid one 50 MG No Chlorthali done 50 MG Vitamin B12 Vitamin B12 No Vi tamin B12 Carvedilol 25 MG Carvedilol 25 MG No Carvedilol 25 MG Vitamin D3 Vitamin D3 No Vitamin D3 Eliquis 5 MG Eliquis 5 MG No 1{table t} BID Eliquis 5 MG Spironolact one 25 MG Spironolact one 25 MG No 1{table t} Spironolac tone 25 MG Solifenacin Succinate 5 MG Solifenacin Succinate 5 MG No Solifenaci n Succinate 5 MG Chlorthalid one 50 MG Chlorthalid one 50 MG No Chlorthali done 50 MG Vitamin B12 Vitamin B12 No Vi tamin B12 Carvedilol 25 MG Carvedilol 25 MG No Carvedilol 25 MG Vitamin D3 Vitamin D3 No Vitamin D3 Eliquis 5 MG Eliquis 5 MG No 1{table t} BID Eliquis 5 MG Spironolact one 25 MG Spironolact one 25 MG No 1{table t} Spironolac tone 25 MG Solifenacin Succinate 5 MG Solifenacin Succinate 5 MG No Solifenaci n Succinate 5 MG Chlorthalid one 50 MG Chlorthalid one 50 MG No Chlorthali done 50 MG Vitamin B12 Vitamin B12 No Vi tamin B12 Carvedilol 25 MG Carvedilol 25 MG No Carvedilol 25 MG Vitamin D3 Vitamin D3 No Vitamin D3 Eliquis 5 MG Eliquis 5 MG No 1{table t} BID Eliquis 5 MG Spironolact one 25 MG Spironolact one 25 MG No 1{table t} Spironolac tone 25 MG Solifenacin Succinate 5 MG Solifenacin Succinate 5 MG No Solifenaci n Succinate 5 MG Chlorthalid one 50 MG Chlorthalid one 50 MG No Chlorthali done 50 MG Vitamin B12 Vitamin B12 No Vi tamin B12 Carvedilol 25 MG Carvedilol 25 MG No Carvedilol 25 MG Vitamin D3 Vitamin D3 No Vitamin D3 Eliquis 5 MG Eliquis 5 MG No 1{table t} BID Eliquis 5 MG Tamsulosin HCl 0.4 MG Tamsulosin HCl 0.4 MG No Tamsulosin HCl 0.4 MG Spironolact one 25 MG Spironolact one 25 MG No 1{table t} Spironolac tone 25 MG Solifenacin Succinate 5 MG Solifenacin Succinate 5 MG No Solifenaci n Succinate 5 MG Chlorthalid one 50 MG Chlorthalid one 50 MG No Chlorthali done 50 MG Vitamin B12 Vitamin B12 No Vi tamin B12 Vitamin C Vitamin C No Vitamin C Vitamin B12 Vitamin B12 No Vi tamin B12 metFORMIN HCl ER 500 MG metFORMIN HCl ER 500 MG No 1{table t_with_ evening _meal} QD metFORMIN HCl ER 500 MG Carvedilol 25 MG Carvedilol 25 MG No 1{table t_with_ food} BID Carvedilol 25 MG Losartan Potassium 50 MG Losartan Potassium 50 MG No Losartan Potassium 50 MG Vitamin D3 Vitamin D3 No Vitamin D3 Chlorthalid one 50 MG Chlorthalid one 50 MG No 1{table t_in_th e_morni ng_with _food} QD Chlorthali done 50 MG Eliquis 2.5 MG Eliquis 2.5 MG No 1{table t} BID Eliquis 2.5 MG metFORMIN HCl ER 500 MG metFORMIN HCl ER 500 MG No 1{table t_with_ evening _meal} QD metFORMIN HCl ER 500 MG Carvedilol 25 MG Carvedilol 25 MG No 1{table t_with_ food} BID Carvedilol 25 MG metFORMIN HCl ER 500 MG metFORMIN HCl ER 500 MG No metFORMIN HCl ER 500 MG Chlorthalid one 50 MG Chlorthalid one 50 MG No 1{table t_in_ e_morni ng_with _food} QD Chlorthali done 50 MG Vitamin B12 Vitamin B12 No Vi tamin B12 Losartan Potassium 50 MG Losartan Potassium 50 MG No 1{table t} QD Losartan Potassium 50 MG Eliquis 2.5 MG Eliquis 2.5 MG No 1{table t} BID Eliquis 2.5 MG Vitamin D3 Vitamin D3 No Vitamin D3 Vitamin C Vitamin C No Vitamin C metFORMIN HCl ER 500 MG metFORMIN HCl ER 500 MG No 1{table t_with_ evening _meal} QD metFORMIN HCl ER 500 MG Carvedilol 25 MG Carvedilol 25 MG No 1{table t_with_ food} BID Carvedilol 25 MG metFORMIN HCl ER 500 MG metFORMIN HCl ER 500 MG No metFORMIN HCl ER 500 MG Chlorthalid one 50 MG Chlorthalid one 50 MG No 1{table t_in_th e_morni ng_with _food} QD Chlorthali done 50 MG Vitamin B12 Vitamin B12 No Vi tamin B12 Losartan Potassium 50 MG Losartan Potassium 50 MG No 1{table t} QD Losartan Potassium 50 MG Eliquis 2.5 MG Eliquis 2.5 MG No 1{table t} BID Eliquis 2.5 MG Vitamin D3 Vitamin D3 No Vitamin D3 Vitamin C Vitamin C No Vitamin C Eliquis 2.5 MG Eliquis 2.5 MG No 1{table t} BID Eliquis 2.5 MG Carvedilol 25 MG Carvedilol 25 MG No 1{table t_with_ food} BID Carvedilol 25 MG metFORMIN HCl ER 500 MG metFORMIN HCl ER 500 MG No metFORMIN HCl ER 500 MG Chlorthalid one 50 MG Chlorthalid one 50 MG No 1{table t_in_ e_morni ng_with _food} QD Chlorthali done 50 MG Vitamin B12 Vitamin B12 No Vi tamin B12 Losartan Potassium 50 MG Losartan Potassium 50 MG No 1{table t} QD Losartan Potassium 50 MG Vitamin D3 Vitamin D3 No Vitamin D3 metFORMIN HCl ER 500 MG metFORMIN HCl ER 500 MG No 1{table t_with_ evening _meal} QD metFORMIN HCl ER 500 MG Vitamin C Vitamin C No Vitamin C Carvedilol 25 MG Carvedilol 25 MG No 1{table t_with_ food} BID Carvedilol 25 MG Losartan Potassium 50 MG Losartan Potassium 50 MG No 1{table t} QD Losartan Potassium 50 MG Chlorthalid one 50 MG Chlorthalid one 50 MG No 1{table t_in e_morni ng_with _food} QD Chlorthali done 50 MG Eliquis 2.5 MG Eliquis 2.5 MG No 1{table t} BID Eliquis 2.5 MG metFORMIN HCl ER 500 MG metFORMIN HCl ER 500 MG No 1{table t_with_ evening _meal} QD metFORMIN HCl ER 500 MG Vitamin D3 Vitamin D3 No Vitamin D3 Vitamin C Vitamin C No Vitamin C metFORMIN HCl ER 500 MG metFORMIN HCl ER 500 MG No metFORMIN HCl ER 500 MG Vitamin B12 Vitamin B12 No Vi tamin B12 Vitamin D3 Vitamin D3 No Vitamin D3 Vitamin C Vitamin C No Vitamin C Eliquis 2.5 MG Eliquis 2.5 MG No 1{table t} BID Eliquis 2.5 MG Carvedilol 25 MG Carvedilol 25 MG No 1{table t_with_ food} BID Carvedilol 25 MG metFORMIN HCl ER 500 MG metFORMIN HCl ER 500 MG No metFORMIN HCl ER 500 MG metFORMIN HCl ER 500 MG metFORMIN HCl ER 500 MG No 1{table t_with_ evening _meal} QD metFORMIN HCl ER 500 MG Vitamin B12 Vitamin B12 No Vi tamin B12 Losartan Potassium 50 MG Losartan Potassium 50 MG No 1{table t} QD Losartan Potassium 50 MG Chlorthalid one 50 MG Chlorthalid one 50 MG No 1{table t_in_th e_morni ng_with _food} QD Chlorthali done 50 MG metFORMIN HCl ER 500 MG metFORMIN HCl ER 500 MG No metFORMIN HCl ER 500 MG Vitamin D3 Vitamin D3 No Vitamin D3 Vitamin B12 Vitamin B12 No Vi tamin B12 Carvedilol 25 MG Carvedilol 25 MG No 1{table t_with_ food} BID Carvedilol 25 MG Losartan Potassium 50 MG Losartan Potassium 50 MG No Losartan Potassium 50 MG Losartan Potassium 50 MG Losartan Potassium 50 MG No 1{table t} QD Losartan Potassium 50 MG Eliquis 2.5 MG Eliquis 2.5 MG No 1{table t} BID Eliquis 2.5 MG Finasteride 5 MG Finasteride 5 MG No 1{table t} QD Finasterid e 5 MG metFORMIN HCl ER 500 MG metFORMIN HCl ER 500 MG No 1{table t_with_ evening _meal} QD metFORMIN HCl ER 500 MG Vitamin C Vitamin C No Vitamin C Chlorthalid one 50 MG Chlorthalid one 50 MG No 1{table t_in e_morni ng_with _food} QD Chlorthali done 50 MG metFORMIN HCl ER 500 MG metFORMIN HCl ER 500 MG No metFORMIN HCl ER 500 MG Carvedilol 25 MG Carvedilol 25 MG No 1{table t_with_ food} BID Carvedilol 25 MG Finasteride 5 MG Finasteride 5 MG No 1{table t} QD Finasterid e 5 MG Vitamin B12 Vitamin B12 No Vi tamin B12 Chlorthalid one 50 MG Chlorthalid one 50 MG No 1{table t_in e_morni ng_with _food} QD Chlorthali done 50 MG Losartan Potassium 50 MG Losartan Potassium 50 MG No Losartan Potassium 50 MG Vitamin D3 Vitamin D3 No Vitamin D3 Eliquis 2.5 MG Eliquis 2.5 MG No 1{table t} BID Eliquis 2.5 MG metFORMIN HCl ER 500 MG metFORMIN HCl ER 500 MG No 1{table t_with_ evening _meal} QD metFORMIN HCl ER 500 MG Vitamin C Vitamin C No Vitamin C Losartan Potassium 50 MG Losartan Potassium 50 MG No 1{table t} QD Losartan Potassium 50 MG Vitamin B12 Vitamin B12 No Vi tamin B12 Losartan Potassium 50 MG Losartan Potassium 50 MG No Losartan Potassium 50 MG Carvedilol 25 MG Carvedilol 25 MG No 1{table t_with_ food} BID Carvedilol 25 MG Chlorthalid one 50 MG Chlorthalid one 50 MG No 1{table t_in_th e_morni ng_with _food} QD Chlorthali done 50 MG Vitamin D3 Vitamin D3 No Vitamin D3 Vitamin C Vitamin C No Vitamin C Eliquis 2.5 MG Eliquis 2.5 MG No 1{table t} BID Eliquis 2.5 MG Losartan Potassium 50 MG Losartan Potassium 50 MG No 1{table t} QD Losartan Potassium 50 MG Vitamin B12 Vitamin B12 No Vi tamin B12 Vitamin C Vitamin C No Vitamin C Eliquis 2.5 MG Eliquis 2.5 MG No 1{table t} BID Eliquis 2.5 MG Carvedilol 25 MG Carvedilol 25 MG No 1{table t_with_ food} BID Carvedilol 25 MG Vitamin D3 Vitamin D3 No Vitamin D3 Chlorthalid one 50 MG Chlorthalid one 50 MG No 1{table t_in e_morni ng_with _food} QD Chlorthali done 50 MG Losartan Potassium 50 MG Losartan Potassium 50 MG No Losartan Potassium 50 MG metFORMIN HCl ER 500 MG metFORMIN HCl ER 500 MG No 1{table t_with_ evening _meal} QD metFORMIN HCl ER 500 MG Losartan Potassium 50 MG Losartan Potassium 50 MG No 1{table t} QD Losartan Potassium 50 MG Vitamin D3 Vitamin D3 No Vitamin D3 metFORMIN HCl ER 500 MG metFORMIN HCl ER 500 MG No 1{table t_with_ evening _meal} QD metFORMIN HCl ER 500 MG Vitamin C Vitamin C No Vitamin C Carvedilol 25 MG Carvedilol 25 MG No 1{table t_with_ food} BID Carvedilol 25 MG Chlorthalid one 50 MG Chlorthalid one 50 MG No 1{table t_in_ e_morni ng_with _food} QD Chlorthali done 50 MG Eliquis 2.5 MG Eliquis 2.5 MG No 1{table t} BID Eliquis 2.5 MG Losartan Potassium 50 MG Losartan Potassium 50 MG No 1{table t} QD Losartan Potassium 50 MG Losartan Potassium 50 MG Losartan Potassium 50 MG No Losartan Potassium 50 MG Vitamin B12 Vitamin B12 No Vi tamin B12 metFORMIN HCl ER 500 MG metFORMIN HCl ER 500 MG No 1{table t_with_ evening _meal} QD metFORMIN HCl ER 500 MG Vitamin B12 Vitamin B12 No Vi tamin B12 Vitamin C Vitamin C No Vitamin C Chlorthalid one 50 MG Chlorthalid one 50 MG No 1{table t_in e_morni ng_with _food} QD Chlorthali done 50 MG Losartan Potassium 50 MG Losartan Potassium 50 MG No 1{table t} QD Losartan Potassium 50 MG Vitamin D3 Vitamin D3 No Vitamin D3 Carvedilol 25 MG Carvedilol 25 MG No 1{table t_with_ food} BID Carvedilol 25 MG Losartan Potassium 50 MG Losartan Potassium 50 MG No Losartan Potassium 50 MG Eliquis 2.5 MG Eliquis 2.5 MG No 1{table t} BID Eliquis 2.5 MG metFORMIN HCl ER 500 MG metFORMIN HCl ER 500 MG No 1{table t_with_ evening _meal} QD metFORMIN HCl ER 500 MG Vitamin B12 Vitamin B12 No Vi tamin B12 Vitamin C Vitamin C No Vitamin C Chlorthalid one 50 MG Chlorthalid one 50 MG No 1{table t_in e_morni ng_with _food} QD Chlorthali done 50 MG Losartan Potassium 50 MG Losartan Potassium 50 MG No 1{table t} QD Losartan Potassium 50 MG Vitamin D3 Vitamin D3 No Vitamin D3 Carvedilol 25 MG Carvedilol 25 MG No 1{table t_with_ food} BID Carvedilol 25 MG Losartan Potassium 50 MG Losartan Potassium 50 MG No Losartan Potassium 50 MG Eliquis 2.5 MG Eliquis 2.5 MG No 1{table t} BID Eliquis 2.5 MG metFORMIN HCl ER 500 MG metFORMIN HCl ER 500 MG No 1{table t_with_ evening _meal} QD metFORMIN HCl ER 500 MG Vitamin C Vitamin C No Vitamin C Eliquis 2.5 MG Eliquis 2.5 MG No 1{table t} BID Eliquis 2.5 MG Vitamin B12 Vitamin B12 No Vi tamin B12 Vitamin D3 Vitamin D3 No Vitamin D3 Losartan Potassium 50 MG Losartan Potassium 50 MG No Losartan Potassium 50 MG Carvedilol 25 MG Carvedilol 25 MG No 1{table t_with_ food} BID Carvedilol 25 MG Losartan Potassium 50 MG Losartan Potassium 50 MG No 1{table t} QD Losartan Potassium 50 MG Chlorthalid one 50 MG Chlorthalid one 50 MG No 1{table t_in e_morni ng_with _food} QD Chlorthali done 50 MG Vitamin B12 Vitamin B12 No Vi tamin B12 Losartan Potassium 50 MG Losartan Potassium 50 MG No 1{table t} QD Losartan Potassium 50 MG Vitamin D3 Vitamin D3 No Vitamin D3 Losartan Potassium 50 MG Losartan Potassium 50 MG No Losartan Potassium 50 MG Carvedilol 25 MG Carvedilol 25 MG No 1{table t_with_ food} BID Carvedilol 25 MG Chlorthalid one 50 MG Chlorthalid one 50 MG No 1{table t_in_ e_morni ng_with _food} QD Chlorthali done 50 MG Vitamin C Vitamin C No Vitamin C metFORMIN HCl ER 500 MG metFORMIN HCl ER 500 MG No 1{table t_with_ evening _meal} QD metFORMIN HCl ER 500 MG Eliquis 2.5 MG Eliquis 2.5 MG No 1{table t} BID Eliquis 2.5 MG Tamsulosin HCl 0.4 MG Tamsulosin HCl 0.4 MG No Tamsulosin HCl 0.4 MG Vitamin B12 Vitamin B12 No Vi tamin B12 Losartan Potassium 50 MG Losartan Potassium 50 MG No 1{table t} QD Losartan Potassium 50 MG Vitamin D3 Vitamin D3 No Vitamin D3 Losartan Potassium 50 MG Losartan Potassium 50 MG No Losartan Potassium 50 MG Carvedilol 25 MG Carvedilol 25 MG No 1{table t_with_ food} BID Carvedilol 25 MG Chlorthalid one 50 MG Chlorthalid one 50 MG No 1{table t_in e_morni ng_with _food} QD Chlorthali done 50 MG Vitamin C Vitamin C No Vitamin C metFORMIN HCl ER 500 MG metFORMIN HCl ER 500 MG No 1{table t_with_ evening _meal} QD metFORMIN HCl ER 500 MG Eliquis 2.5 MG Eliquis 2.5 MG No 1{table t} BID Eliquis 2.5 MG Tamsulosin HCl 0.4 MG Tamsulosin HCl 0.4 MG No Tamsulosin HCl 0.4 MG Tamsulosin HCl 0.4 MG Tamsulosin HCl 0.4 MG No Tamsulosin HCl 0.4 MG Vitamin D3 Vitamin D3 No Vitamin D3 Vitamin B12 Vitamin B12 No Vi tamin B12 metFORMIN HCl ER 500 MG metFORMIN HCl ER 500 MG No 1{table t_with_ evening _meal} QD metFORMIN HCl ER 500 MG Carvedilol 25 MG Carvedilol 25 MG No 1{table t_with_ food} BID Carvedilol 25 MG Vitamin C Vitamin C No Vitamin C Losartan Potassium 50 MG Losartan Potassium 50 MG No Losartan Potassium 50 MG Losartan Potassium 50 MG Losartan Potassium 50 MG No 1{table t} QD Losartan Potassium 50 MG Eliquis 2.5 MG Eliquis 2.5 MG No 1{table t} BID Eliquis 2.5 MG Chlorthalid one 50 MG Chlorthalid one 50 MG No 1{table t_in_ e_morni ng_with _food} QD Chlorthali done 50 MG Vitamin B12 Vitamin B12 No Vi tamin B12 Carvedilol 25 MG Carvedilol 25 MG No 1{table t_with_ food} BID Carvedilol 25 MG metFORMIN HCl ER 500 MG metFORMIN HCl ER 500 MG No 1{table t_with_ evening _meal} QD metFORMIN HCl ER 500 MG Tamsulosin HCl 0.4 MG Tamsulosin HCl 0.4 MG No Tamsulosin HCl 0.4 MG Chlorthalid one 50 MG Chlorthalid one 50 MG No 1{table t_in e_morni ng_with _food} QD Chlorthali done 50 MG Losartan Potassium 50 MG Losartan Potassium 50 MG No 1{table t} QD Losartan Potassium 50 MG Losartan Potassium 50 MG Losartan Potassium 50 MG No Losartan Potassium 50 MG Eliquis 2.5 MG Eliquis 2.5 MG No 1{table t} BID Eliquis 2.5 MG Vitamin C Vitamin C No Vitamin C Vitamin D3 Vitamin D3 No Vitamin D3 Vitamin B12 Vitamin B12 No Vi tamin B12 Carvedilol 25 MG Carvedilol 25 MG No 1{table t_with_ food} BID Carvedilol 25 MG metFORMIN HCl ER 500 MG metFORMIN HCl ER 500 MG No 1{table t_with_ evening _meal} QD metFORMIN HCl ER 500 MG Tamsulosin HCl 0.4 MG Tamsulosin HCl 0.4 MG No Tamsulosin HCl 0.4 MG Chlorthalid one 50 MG Chlorthalid one 50 MG No 1{table t_in_ e_morni ng_with _food} QD Chlorthali done 50 MG Losartan Potassium 50 MG Losartan Potassium 50 MG No 1{table t} QD Losartan Potassium 50 MG Losartan Potassium 50 MG Losartan Potassium 50 MG No Losartan Potassium 50 MG Eliquis 2.5 MG Eliquis 2.5 MG No 1{table t} BID Eliquis 2.5 MG Vitamin C Vitamin C No Vitamin C Vitamin D3 Vitamin D3 No Vitamin D3 metFORMIN HCl ER 500 MG metFORMIN HCl ER 500 MG No 1{table t_with_ evening _meal} QD metFORMIN HCl ER 500 MG Vitamin C Vitamin C No Vitamin C Losartan Potassium 50 MG Losartan Potassium 50 MG No Losartan Potassium 50 MG Eliquis 2.5 MG Eliquis 2.5 MG No 1{table t} BID Eliquis 2.5 MG Vitamin D3 Vitamin D3 No Vitamin D3 Chlorthalid one 50 MG Chlorthalid one 50 MG No 1{table t_in_ e_morni ng_with _food} QD Chlorthali done 50 MG Tamsulosin HCl 0.4 MG Tamsulosin HCl 0.4 MG No Tamsulosin HCl 0.4 MG Carvedilol 25 MG Carvedilol 25 MG No 1{table t_with_ food} BID Carvedilol 25 MG Vitamin B12 Vitamin B12 No Vi tamin B12 Tamsulosin HCl 0.4 MG Tamsulosin HCl 0.4 MG No Tamsulosin HCl 0.4 MG Vitamin C Vitamin C No Vitamin C Vitamin B12 Vitamin B12 No Vi tamin B12 metFORMIN HCl ER 500 MG metFORMIN HCl ER 500 MG No 1{table t_with_ evening _meal} QD metFORMIN HCl ER 500 MG Carvedilol 25 MG Carvedilol 25 MG No 1{table t_with_ food} BID Carvedilol 25 MG Losartan Potassium 50 MG Losartan Potassium 50 MG No Losartan Potassium 50 MG Vitamin D3 Vitamin D3 No Vitamin D3 Chlorthalid one 50 MG Chlorthalid one 50 MG No 1{table t_in e_morni ng_with _food} QD Chlorthali done 50 MG Eliquis 2.5 MG Eliquis 2.5 MG No 1{table t} BID Eliquis 2.5 MG Vitamin B12 Vitamin B12 No Vi tamin B12 Losartan Potassium 50 MG Losartan Potassium 50 MG No Losartan Potassium 50 MG metFORMIN HCl ER 500 MG metFORMIN HCl ER 500 MG No 1{table t_with_ evening _meal} QD metFORMIN HCl ER 500 MG Chlorthalid one 50 MG Chlorthalid one 50 MG No 1{table t_in_ e_morni ng_with _food} QD Chlorthali done 50 MG Eliquis 5 MG Eliquis 5 MG No 1{table t} BID Eliquis 5 MG Losartan Potassium 50 MG Losartan Potassium 50 MG No 1{table t} QD Losartan Potassium 50 MG Vitamin C Vitamin C No Vitamin C Tamsulosin HCl 0.4 MG Tamsulosin HCl 0.4 MG No Tamsulosin HCl 0.4 MG Vitamin B12 Vitamin B12 No Vi tamin B12 Carvedilol 25 MG Carvedilol 25 MG No 1{table t_with_ food} BID Carvedilol 25 MG Vitamin D3 Vitamin D3 No Vitamin D3 Carvedilol 25 MG Carvedilol 25 MG No 1{table t_with_ food} BID Carvedilol 25 MG metFORMIN HCl ER 500 MG metFORMIN HCl ER 500 MG No 1{table t_with_ evening _meal} QD metFORMIN HCl ER 500 MG Losartan Potassium 50 MG Losartan Potassium 50 MG No Losartan Potassium 50 MG metFORMIN HCl ER 500 MG metFORMIN HCl ER 500 MG No 1{table t_with_ evening _meal} QD metFORMIN HCl ER 500 MG Chlorthalid one 50 MG Chlorthalid one 50 MG No 1{table t_in_ e_morni ng_with _food} QD Chlorthali done 50 MG Eliquis 5 MG Eliquis 5 MG No 1{table t} BID Eliquis 5 MG Losartan Potassium 50 MG Losartan Potassium 50 MG No 1{table t} QD Losartan Potassium 50 MG Vitamin C Vitamin C No Vitamin C Tamsulosin HCl 0.4 MG Tamsulosin HCl 0.4 MG No Tamsulosin HCl 0.4 MG Tamsulosin HCl 0.4 MG Tamsulosin HCl 0.4 MG No Tamsulosin HCl 0.4 MG Vitamin B12 Vitamin B12 No Vi tamin B12 Carvedilol 25 MG Carvedilol 25 MG No 1{table t_with_ food} BID Carvedilol 25 MG Vitamin D3 Vitamin D3 No Vitamin D3 Chlorthalid one 50 MG Chlorthalid one 50 MG No 1{table t_in_ e_morni ng_with _food} QD Chlorthali done 50 MG Losartan Potassium 50 MG Losartan Potassium 50 MG No 1{table t} QD Losartan Potassium 50 MG Losartan Potassium 50 MG Losartan Potassium 50 MG No Losartan Potassium 50 MG Losartan Potassium 50 MG Losartan Potassium 50 MG No 1{table t} QD Losartan Potassium 50 MG Carvedilol 25 MG Carvedilol 25 MG No 1{table t_with_ food} BID Carvedilol 25 MG Vitamin C Vitamin C No Vitamin C metFORMIN HCl ER 500 MG metFORMIN HCl ER 500 MG No 1{table t_with_ evening _meal} QD metFORMIN HCl ER 500 MG Tamsulosin HCl 0.4 MG Tamsulosin HCl 0.4 MG No Tamsulosin HCl 0.4 MG Losartan Potassium 50 MG Losartan Potassium 50 MG No Losartan Potassium 50 MG Eliquis 5 MG Eliquis 5 MG No 1{table t} BID Eliquis 5 MG Chlorthalid one 50 MG Chlorthalid one 50 MG No 1{table t_in e_damion ng_with _food} QD Chlorthali done 50 MG Vitamin D3 Vitamin D3 No Vitamin D3 Vitamin B12 Vitamin B12 No Vi tamin B12 Eliquis 2.5 MG Eliquis 2.5 MG No 1{table t} BID Eliquis 2.5 MG Vitamin C Vitamin C No Vitamin C Vitamin B12 Vitamin B12 No Vi tamin B12 Losartan Potassium 50 MG Losartan Potassium 50 MG No Losartan Potassium 50 MG Vitamin C Vitamin C No Vitamin C Chlorthalid one 50 MG Chlorthalid one 50 MG No 1{table t_in e_damion ng_with _food} QD Chlorthali done 50 MG Losartan Potassium 50 MG Losartan Potassium 50 MG No 1{table t} QD Losartan Potassium 50 MG metFORMIN HCl ER 500 MG metFORMIN HCl ER 500 MG No 1{table t_with_ evening _meal} QD metFORMIN HCl ER 500 MG Eliquis 5 MG Eliquis 5 MG No 1{table t} BID Eliquis 5 MG Vitamin D3 Vitamin D3 No Vitamin D3 Vitamin D3 Vitamin D3 No Vitamin D3 Carvedilol 25 MG Carvedilol 25 MG No 1{table t_with_ food} BID Carvedilol 25 MG Tamsulosin HCl 0.4 MG Tamsulosin HCl 0.4 MG No Tamsulosin HCl 0.4 MG Vitamin C Vitamin C No Vitamin C Vitamin B12 Vitamin B12 No Vi tamin B12 Losartan Potassium 50 MG Losartan Potassium 50 MG No Losartan Potassium 50 MG Chlorthalid one 50 MG Chlorthalid one 50 MG No 1{table t_in e_morni ng_with _food} QD Chlorthali done 50 MG Losartan Potassium 50 MG Losartan Potassium 50 MG No 1{table t} QD Losartan Potassium 50 MG metFORMIN HCl ER 500 MG metFORMIN HCl ER 500 MG No 1{table t_with_ evening _meal} QD metFORMIN HCl ER 500 MG Eliquis 5 MG Eliquis 5 MG No 1{table t} BID Eliquis 5 MG Vitamin D3 Vitamin D3 No Vitamin D3 Carvedilol 25 MG Carvedilol 25 MG No 1{table t_with_ food} BID Carvedilol 25 MG Tamsulosin HCl 0.4 MG Tamsulosin HCl 0.4 MG No Tamsulosin HCl 0.4 MG Vitamin B12 Vitamin B12 No Vi tamin B12 Chlorthalid one 50 MG Chlorthalid one 50 MG No 1{table t_in_ santy_damion ng_with _food} QD Chlorthali done 50 MG Eliquis 5 MG Eliquis 5 MG No 1{table t} BID Eliquis 5 MG metFORMIN HCl ER 500 MG metFORMIN HCl ER 500 MG No 1{table t_with_ evening _meal} QD metFORMIN HCl ER 500 MG Vitamin C Vitamin C No Vitamin C Carvedilol 25 MG Carvedilol 25 MG No 1{table t_with_ food} BID Carvedilol 25 MG Tamsulosin HCl 0.4 MG Tamsulosin HCl 0.4 MG No Tamsulosin HCl 0.4 MG Losartan Potassium 50 MG Losartan Potassium 50 MG No 1{table t} QD Losartan Potassium 50 MG Vitamin D3 Vitamin D3 No Vitamin D3 Losartan Potassium 50 MG Losartan Potassium 50 MG No Losartan Potassium 50 MG Vitamin B12 Vitamin B12 No Vi tamin B12 Chlorthalid one 50 MG Chlorthalid one 50 MG No 1{table t_in e_damion ng_with _food} QD Chlorthali done 50 MG Eliquis 5 MG Eliquis 5 MG No 1{table t} BID Eliquis 5 MG metFORMIN HCl ER 500 MG metFORMIN HCl ER 500 MG No 1{table t_with_ evening _meal} QD metFORMIN HCl ER 500 MG Vitamin C Vitamin C No Vitamin C Carvedilol 25 MG Carvedilol 25 MG No 1{table t_with_ food} BID Carvedilol 25 MG Tamsulosin HCl 0.4 MG Tamsulosin HCl 0.4 MG No Tamsulosin HCl 0.4 MG Losartan Potassium 50 MG Losartan Potassium 50 MG No 1{table t} QD Losartan Potassium 50 MG Vitamin D3 Vitamin D3 No Vitamin D3 Losartan Potassium 50 MG Losartan Potassium 50 MG No Losartan Potassium 50 MG Spironolact one Spironolact one No Spironolac tone Carvedilol 25 MG Carvedilol 25 MG No 1{table t_with_ food} BID Carvedilol 25 MG Vitamin B12 Vitamin B12 No Vi tamin B12 metFORMIN HCl ER 500 MG metFORMIN HCl ER 500 MG No 1{table t_with_ evening _meal} QD metFORMIN HCl ER 500 MG Vitamin C Vitamin C No Vitamin C Vitamin D3 Vitamin D3 No Vitamin D3 Eliquis 5 MG Eliquis 5 MG No 1{table t} BID Eliquis 5 MG Tamsulosin HCl 0.4 MG Tamsulosin HCl 0.4 MG No Tamsulosin HCl 0.4 MG Chlorthalid one 50 MG Chlorthalid one 50 MG No 1{table t_in_th e_morni ng_with _food} QD Chlorthali done 50 MG Losartan Potassium 50 MG Losartan Potassium 50 MG No Losartan Potassium 50 MG Losartan Potassium 50 MG Losartan Potassium 50 MG No 1{table t} QD Losartan Potassium 50 MG metFORMIN HCl ER 500 MG metFORMIN HCl ER 500 MG No 1{table t_with_ evening _meal} QD metFORMIN HCl ER 500 MG Finasteride 5 MG Finasteride 5 MG 03-02 00:00 :00 No 1{table t} QD Finasterid e 5 MG Finasteride 5 MG Finasteride 5 MG 03-02 00:00 :00 No 1{table t} QD Finasterid e 5 MG Finasteride 5 MG Finasteride 5 MG 03-02 00:00 :00 No 1{table t} QD Finasterid e 5 MG Finasteride 5 MG Finasteride 5 MG 03-02 00:00 :00 No 1{table t} QD Finasterid e 5 MG Finasteride 5 MG Finasteride 5 MG 03-02 00:00 :00 No 1{table t} QD Finasterid e 5 MG Finasteride 5 MG Finasteride 5 MG 03-02 00:00 :00 No 1{table t} QD Finasterid e 5 MG Finasteride 5 MG Finasteride 5 MG 03-02 00:00 :00 No 1{table t} QD Finasterid e 5 MG Finasteride 5 MG Finasteride 5 MG 03-02 00:00 :00 No 1{table t} QD Finasterid e 5 MG Finasteride 5 MG Finasteride 5 MG 03-02 00:00 :00 No 1{table t} QD Finasterid e 5 MG Finasteride 5 MG Finasteride 5 MG 03-02 00:00 :00 No 1{table t} QD Finasterid e 5 MG Finasteride 5 MG Finasteride 5 MG 03-02 00:00 :00 No 1{table t} QD Finasterid e 5 MG Finasteride 5 MG Finasteride 5 MG 03-02 00:00 :00 No 1{table t} QD Finasterid e 5 MG Finasteride 5 MG Finasteride 5 MG 09-17 00:00 :00 No 1{table t} QD Finasterid e 5 MG Finasteride 5 MG Finasteride 5 MG 09-17 00:00 :00 No 1{table t} QD Finasterid e 5 MG Finasteride 5 MG Finasteride 5 MG 09-17 00:00 :00 No 1{table t} QD Finasterid e 5 MG Finasteride 5 MG Finasteride 5 MG 09-17 00:00 :00 No 1{table t} QD Finasterid e 5 MG Finasteride 5 MG Finasteride 5 MG 09-17 00:00 :00 No 1{table t} QD Finasterid e 5 MG Finasteride 5 MG Finasteride 5 MG 09-17 00:00 :00 No 1{table t} QD Finasterid e 5 MG Finasteride 5 MG Finasteride 5 MG 09-17 00:00 :00 No 1{table t} QD Finasterid e 5 MG Finasteride 5 MG Finasteride 5 MG 09-17 00:00 :00 No 1{table t} QD Finasterid e 5 MG Finasteride 5 MG Finasteride 5 MG 09-17 00:00 :00 No 1{table t} QD Finasterid e 5 MG Finasteride 5 MG Finasteride 5 MG 09-17 00:00 :00 No 1{table t} QD Finasterid e 5 MG Finasteride 5 MG Finasteride 5 MG 09-17 00:00 :00 No 1{table t} QD Finasterid e 5 MG Finasteride 5 MG Finasteride 5 MG 09-17 00:00 :00 No 1{table t} QD Finasterid e 5 MG Finasteride 5 MG Finasteride 5 MG 09-17 00:00 :00 No 1{table t} QD Finasterid e 5 MG Finasteride 5 MG Finasteride 5 MG 09-17 00:00 :00 No 1{table t} QD Finasterid e 5 MG Immunizations Ordered Immunization Name Filled Immunization Name Date Status Comments Source Pneumovax (PPSV23) Pneumovax (PPSV23) 2021-01-25 11:15:00 Completed [facility] Pneumovax (PPSV23) Pneumovax (PPSV23) 2021-01-25 11:15:00 Completed [facility] Pneumovax (PPSV23) Pneumovax (PPSV23) 2021-01-25 11:15:00 Completed [facility] Pneumovax (PPSV23) Pneumovax (PPSV23) 2021-01-25 11:15:00 Completed [facility] Pneumovax (PPSV23) Pneumovax (PPSV23) 2021-01-25 11:15:00 Completed [facility] Pneumovax (PPSV23) Pneumovax (PPSV23) 2021-01-25 11:15:00 Completed [facility] Pneumovax (PPSV23) Pneumovax (PPSV23) 2021-01-25 11:15:00 Completed [facility] Pneumovax (PPSV23) Pneumovax (PPSV23) 2021-01-25 11:15:00 Completed [facility] Pneumovax (PPSV23) Pneumovax (PPSV23) 2021-01-25 11:15:00 Completed [facility] Pneumovax (PPSV23) Pneumovax (PPSV23) 2021-01-25 11:15:00 Completed [facility] Pneumovax (PPSV23) Pneumovax (PPSV23) 2021-01-25 11:15:00 Completed [facility] Pneumovax (PPSV23) Pneumovax (PPSV23) 2021-01-25 11:15:00 Completed [facility] Pneumovax (PPSV23) Pneumovax (PPSV23) 2021-01-25 11:15:00 Completed [facility] Pneumovax (PPSV23) Pneumovax (PPSV23) 2021-01-25 11:15:00 Completed [facility] Pneumovax (PPSV23) Pneumovax (PPSV23) 2021-01-25 11:15:00 Completed [facility] Pneumovax (PPSV23) Pneumovax (PPSV23) 2021-01-25 11:15:00 Completed [facility] Pneumovax (PPSV23) Pneumovax (PPSV23) 2021-01-25 11:15:00 Completed [facility] Pneumovax (PPSV23) Pneumovax (PPSV23) 2021-01-25 11:15:00 Completed [facility] Pneumovax (PPSV23) Pneumovax (PPSV23) 2021-01-25 11:15:00 Completed [facility] Pneumovax (PPSV23) Pneumovax (PPSV23) 2021-01-25 11:15:00 Completed [facility] Pneumovax (PPSV23) Pneumovax (PPSV23) 2021-01-25 11:15:00 Completed [facility] Pneumovax (PPSV23) Pneumovax (PPSV23) 2021-01-25 11:15:00 Completed [facility] Pneumovax (PPSV23) Pneumovax (PPSV23) 2021-01-25 11:15:00 Completed [facility] Pneumovax (PPSV23) Pneumovax (PPSV23) 2021-01-25 11:15:00 Completed [facility] Pneumovax (PPSV23) Pneumovax (PPSV23) 2021-01-25 11:15:00 Completed [facility] Pneumovax (PPSV23) Pneumovax (PPSV23) 2021-01-25 11:15:00 Completed [facility] Pneumovax (PPSV23) Pneumovax (PPSV23) 2021-01-25 11:15:00 Completed [facility] Pneumovax (PPSV23) Pneumovax (PPSV23) 2021-01-25 11:15:00 Completed [facility] Pneumovax (PPSV23) Pneumovax (PPSV23) 2021-01-25 11:15:00 Completed [facility] Pneumovax (PPSV23) Pneumovax (PPSV23) 2021-01-25 11:15:00 Completed [facility] Pneumovax (PPSV23) Pneumovax (PPSV23) 2021-01-25 11:15:00 Completed [facility] Pneumovax (PPSV23) Pneumovax (PPSV23) 2021-01-25 11:15:00 Completed [facility] Pneumovax (PPSV23) Pneumovax (PPSV23) 2021-01-25 11:15:00 Completed [facility] Pneumovax (PPSV23) Pneumovax (PPSV23) 2021-01-25 11:15:00 Completed [facility] Pneumovax (PPSV23) Pneumovax (PPSV23) 2021-01-25 11:15:00 Completed [facility] FLUZONE HIGH DOSE OVER 65 FLUZONE HIGH DOSE OVER 65 2021-01-25 11:14:00 Completed [facility] FLUZONE HIGH DOSE OVER 65 FLUZONE HIGH DOSE OVER 65 2021-01-25 11:14:00 Completed [facility] FLUZONE HIGH DOSE OVER 65 FLUZONE HIGH DOSE OVER 65 2021-01-25 11:14:00 Completed [facility] FLUZONE HIGH DOSE OVER 65 FLUZONE HIGH DOSE OVER 65 2021-01-25 11:14:00 Completed [facility] FLUZONE HIGH DOSE OVER 65 FLUZONE HIGH DOSE OVER 65 2021-01-25 11:14:00 Completed [facility] FLUZONE HIGH DOSE OVER 65 FLUZONE HIGH DOSE OVER 65 2021-01-25 11:14:00 Completed [facility] FLUZONE HIGH DOSE OVER 65 FLUZONE HIGH DOSE OVER 65 2021-01-25 11:14:00 Completed [facility] FLUZONE HIGH DOSE OVER 65 FLUZONE HIGH DOSE OVER 65 2021-01-25 11:14:00 Completed [facility] FLUZONE HIGH DOSE OVER 65 FLUZONE HIGH DOSE OVER 65 2021-01-25 11:14:00 Completed [facility] FLUZONE HIGH DOSE OVER 65 FLUZONE HIGH DOSE OVER 65 2021-01-25 11:14:00 Completed [facility] FLUZONE HIGH DOSE OVER 65 FLUZONE HIGH DOSE OVER 65 2021-01-25 11:14:00 Completed [facility] FLUZONE HIGH DOSE OVER 65 FLUZONE HIGH DOSE OVER 65 2021-01-25 11:14:00 Completed [facility] FLUZONE HIGH DOSE OVER 65 FLUZONE HIGH DOSE OVER 65 2021-01-25 11:14:00 Completed [facility] FLUZONE HIGH DOSE OVER 65 FLUZONE HIGH DOSE OVER 65 2021-01-25 11:14:00 Completed [facility] FLUZONE HIGH DOSE OVER 65 FLUZONE HIGH DOSE OVER 65 2021-01-25 11:14:00 Completed [facility] FLUZONE HIGH DOSE OVER 65 FLUZONE HIGH DOSE OVER 65 2021-01-25 11:14:00 Completed [facility] FLUZONE HIGH DOSE OVER 65 FLUZONE HIGH DOSE OVER 65 2021-01-25 11:14:00 Completed [facility] FLUZONE HIGH DOSE OVER 65 FLUZONE HIGH DOSE OVER 65 2021-01-25 11:14:00 Completed [facility] FLUZONE HIGH DOSE OVER 65 FLUZONE HIGH DOSE OVER 65 2021-01-25 11:14:00 Completed [facility] FLUZONE HIGH DOSE OVER 65 FLUZONE HIGH DOSE OVER 65 2021-01-25 11:14:00 Completed [facility] FLUZONE HIGH DOSE OVER 65 FLUZONE HIGH DOSE OVER 65 2021-01-25 11:14:00 Completed [facility] FLUZONE HIGH DOSE OVER 65 FLUZONE HIGH DOSE OVER 65 2021-01-25 11:14:00 Completed [facility] FLUZONE HIGH DOSE OVER 65 FLUZONE HIGH DOSE OVER 65 2021-01-25 11:14:00 Completed [facility] FLUZONE HIGH DOSE OVER 65 FLUZONE HIGH DOSE OVER 65 2021-01-25 11:14:00 Completed [facility] FLUZONE HIGH DOSE OVER 65 FLUZONE HIGH DOSE OVER 65 2021-01-25 11:14:00 Completed [facility] FLUZONE HIGH DOSE OVER 65 FLUZONE HIGH DOSE OVER 65 2021-01-25 11:14:00 Completed [facility] FLUZONE HIGH DOSE OVER 65 FLUZONE HIGH DOSE OVER 65 2021-01-25 11:14:00 Completed [facility] FLUZONE HIGH DOSE OVER 65 FLUZONE HIGH DOSE OVER 65 2021-01-25 11:14:00 Completed [facility] FLUZONE HIGH DOSE OVER 65 FLUZONE HIGH DOSE OVER 65 2021-01-25 11:14:00 Completed [facility] FLUZONE HIGH DOSE OVER 65 FLUZONE HIGH DOSE OVER 65 2021-01-25 11:14:00 Completed [facility] FLUZONE HIGH DOSE OVER 65 FLUZONE HIGH DOSE OVER 65 2021-01-25 11:14:00 Completed [facility] FLUZONE HIGH DOSE OVER 65 FLUZONE HIGH DOSE OVER 65 2021-01-25 11:14:00 Completed [facility] FLUZONE HIGH DOSE OVER 65 FLUZONE HIGH DOSE OVER 65 2021-01-25 11:14:00 Completed [facility] FLUZONE HIGH DOSE OVER 65 FLUZONE HIGH DOSE OVER 65 2021-01-25 11:14:00 Completed [facility] FLUZONE HIGH DOSE OVER 65 FLUZONE HIGH DOSE OVER 65 2021-01-25 11:14:00 Completed [facility] Moderna COVID-19 Vaccine Moderna COVID-19 Vaccine 2020-08-20 11:14:00 Completed [facility] Moderna COVID-19 Vaccine Moderna COVID-19 Vaccine 2020-08-20 11:14:00 Completed [facility] Moderna COVID-19 Vaccine Moderna COVID-19 Vaccine 2020-08-20 11:14:00 Completed [facility] Moderna COVID-19 Vaccine Moderna COVID-19 Vaccine 2020-08-20 11:14:00 Completed [facility] Moderna COVID-19 Vaccine Moderna COVID-19 Vaccine 2020-08-20 11:14:00 Completed [facility] Moderna COVID-19 Vaccine Moderna COVID-19 Vaccine 2020-08-20 11:14:00 Completed [facility] Moderna COVID-19 Vaccine Moderna COVID-19 Vaccine 2020-08-20 11:14:00 Completed [facility] Moderna COVID-19 Vaccine Moderna COVID-19 Vaccine 2020-08-20 11:14:00 Completed [facility] Moderna COVID-19 Vaccine Moderna COVID-19 Vaccine 2020-08-20 11:14:00 Completed [facility] Moderna COVID-19 Vaccine Moderna COVID-19 Vaccine 2020-08-20 11:14:00 Completed [facility] Moderna COVID-19 Vaccine Moderna COVID-19 Vaccine 2020-08-20 11:14:00 Completed [facility] Moderna COVID-19 Vaccine Moderna COVID-19 Vaccine 2020-08-20 11:14:00 Completed [facility] Moderna COVID-19 Vaccine Moderna COVID-19 Vaccine 2020-08-20 11:14:00 Completed [facility] Moderna COVID-19 Vaccine Moderna COVID-19 Vaccine 2020-08-20 11:14:00 Completed [facility] Moderna COVID-19 Vaccine Moderna COVID-19 Vaccine 2020-08-20 11:14:00 Completed [facility] Moderna COVID-19 Vaccine Moderna COVID-19 Vaccine 2020-08-20 11:14:00 Completed [facility] Moderna COVID-19 Vaccine Moderna COVID-19 Vaccine 2020-08-20 11:14:00 Completed [facility] Moderna COVID-19 Vaccine Moderna COVID-19 Vaccine 2020-08-20 11:14:00 Completed [facility] Moderna COVID-19 Vaccine Moderna COVID-19 Vaccine 2020-08-20 11:14:00 Completed [facility] Moderna COVID-19 Vaccine Moderna COVID-19 Vaccine 2020-08-20 11:14:00 Completed [facility] Moderna COVID-19 Vaccine Moderna COVID-19 Vaccine 2020-08-20 11:14:00 Completed [facility] Moderna COVID-19 Vaccine Moderna COVID-19 Vaccine 2020-08-20 11:14:00 Completed [facility] Moderna COVID-19 Vaccine Moderna COVID-19 Vaccine 2020-08-20 11:14:00 Completed [facility] Moderna COVID-19 Vaccine Moderna COVID-19 Vaccine 2020-08-20 11:14:00 Completed [facility] Moderna COVID-19 Vaccine Moderna COVID-19 Vaccine 2020-08-20 11:14:00 Completed [facility] Moderna COVID-19 Vaccine Moderna COVID-19 Vaccine 2020-08-20 11:14:00 Completed [facility] Moderna COVID-19 Vaccine Moderna COVID-19 Vaccine 2020-08-20 11:14:00 Completed [facility] Moderna COVID-19 Vaccine Moderna COVID-19 Vaccine 2020-08-20 11:14:00 Completed [facility] Moderna COVID-19 Vaccine Moderna COVID-19 Vaccine 2020-08-20 11:14:00 Completed [facility] Moderna COVID-19 Vaccine Moderna COVID-19 Vaccine 2020-08-20 11:14:00 Completed [facility] Moderna COVID-19 Vaccine Moderna COVID-19 Vaccine 2020-08-20 11:14:00 Completed [facility] Moderna COVID-19 Vaccine Moderna COVID-19 Vaccine 2020-08-20 11:14:00 Completed [facility] Moderna COVID-19 Vaccine Moderna COVID-19 Vaccine 2020-08-20 11:14:00 Completed [facility] Moderna COVID-19 Vaccine Moderna COVID-19 Vaccine 2020-08-20 11:14:00 Completed [facility] Moderna COVID-19 Vaccine Moderna COVID-19 Vaccine 2020-08-20 11:14:00 Completed [facility] Moderna COVID-19 Vaccine Moderna COVID-19 Vaccine 2020-07-23 11:14:00 Completed [facility] Moderna COVID-19 Vaccine Moderna COVID-19 Vaccine 2020-07-23 11:14:00 Completed [facility] Moderna COVID-19 Vaccine Moderna COVID-19 Vaccine 2020-07-23 11:14:00 Completed [facility] Moderna COVID-19 Vaccine Moderna COVID-19 Vaccine 2020-07-23 11:14:00 Completed [facility] Moderna COVID-19 Vaccine Moderna COVID-19 Vaccine 2020-07-23 11:14:00 Completed [facility] Moderna COVID-19 Vaccine Moderna COVID-19 Vaccine 2020-07-23 11:14:00 Completed [facility] Moderna COVID-19 Vaccine Moderna COVID-19 Vaccine 2020-07-23 11:14:00 Completed [facility] Moderna COVID-19 Vaccine Moderna COVID-19 Vaccine 2020-07-23 11:14:00 Completed [facility] Moderna COVID-19 Vaccine Moderna COVID-19 Vaccine 2020-07-23 11:14:00 Completed [facility] Moderna COVID-19 Vaccine Moderna COVID-19 Vaccine 2020-07-23 11:14:00 Completed [facility] Moderna COVID-19 Vaccine Moderna COVID-19 Vaccine 2020-07-23 11:14:00 Completed [facility] Moderna COVID-19 Vaccine Moderna COVID-19 Vaccine 2020-07-23 11:14:00 Completed [facility] Moderna COVID-19 Vaccine Moderna COVID-19 Vaccine 2020-07-23 11:14:00 Completed [facility] Moderna COVID-19 Vaccine Moderna COVID-19 Vaccine 2020-07-23 11:14:00 Completed [facility] Moderna COVID-19 Vaccine Moderna COVID-19 Vaccine 2020-07-23 11:14:00 Completed [facility] Moderna COVID-19 Vaccine Moderna COVID-19 Vaccine 2020-07-23 11:14:00 Completed [facility] Moderna COVID-19 Vaccine Moderna COVID-19 Vaccine 2020-07-23 11:14:00 Completed [facility] Moderna COVID-19 Vaccine Moderna COVID-19 Vaccine 2020-07-23 11:14:00 Completed [facility] Moderna COVID-19 Vaccine Moderna COVID-19 Vaccine 2020-07-23 11:14:00 Completed [facility] Moderna COVID-19 Vaccine Moderna COVID-19 Vaccine 2020-07-23 11:14:00 Completed [facility] Moderna COVID-19 Vaccine Moderna COVID-19 Vaccine 2020-07-23 11:14:00 Completed [facility] Moderna COVID-19 Vaccine Moderna COVID-19 Vaccine 2020-07-23 11:14:00 Completed [facility] Moderna COVID-19 Vaccine Moderna COVID-19 Vaccine 2020-07-23 11:14:00 Completed [facility] Moderna COVID-19 Vaccine Moderna COVID-19 Vaccine 2020-07-23 11:14:00 Completed [facility] Moderna COVID-19 Vaccine Moderna COVID-19 Vaccine 2020-07-23 11:14:00 Completed [facility] Moderna COVID-19 Vaccine Moderna COVID-19 Vaccine 2020-07-23 11:14:00 Completed [facility] Moderna COVID-19 Vaccine Moderna COVID-19 Vaccine 2020-07-23 11:14:00 Completed [facility] Moderna COVID-19 Vaccine Moderna COVID-19 Vaccine 2020-07-23 11:14:00 Completed [facility] Moderna COVID-19 Vaccine Moderna COVID-19 Vaccine 2020-07-23 11:14:00 Completed [facility] Moderna COVID-19 Vaccine Moderna COVID-19 Vaccine 2020-07-23 11:14:00 Completed [facility] Moderna COVID-19 Vaccine Moderna COVID-19 Vaccine 2020-07-23 11:14:00 Completed [facility] Moderna COVID-19 Vaccine Moderna COVID-19 Vaccine 2020-07-23 11:14:00 Completed [facility] Moderna COVID-19 Vaccine Moderna COVID-19 Vaccine 2020-07-23 11:14:00 Completed [facility] Moderna COVID-19 Vaccine Moderna COVID-19 Vaccine 2020-07-23 11:14:00 Completed [facility] Moderna COVID-19 Vaccine Moderna COVID-19 Vaccine 2020-07-23 11:14:00 Completed [facility] Shingrix Shingrix 2018-10-28 11:15:00 Completed [facility] Shingrix Shingrix 2018-10-28 11:15:00 Completed [facility] Shingrix Shingrix 2018-10-28 11:15:00 Completed [facility] Shingrix Shingrix 2018-10-28 11:15:00 Completed [facility] Shingrix Shingrix 2018-10-28 11:15:00 Completed [facility] Shingrix Shingrix 2018-10-28 11:15:00 Completed [facility] Shingrix Shingrix 2018-10-28 11:15:00 Completed [facility] Shingrix Shingrix 2018-10-28 11:15:00 Completed [facility] Shingrix Shingrix 2018-10-28 11:15:00 Completed [facility] Shingrix Shingrix 2018-10-28 11:15:00 Completed [facility] Shingrix Shingrix 2018-10-28 11:15:00 Completed [facility] Shingrix Shingrix 2018-10-28 11:15:00 Completed [facility] Shingrix Shingrix 2018-10-28 11:15:00 Completed [facility] Shingrix Shingrix 2018-10-28 11:15:00 Completed [facility] Shingrix Shingrix 2018-10-28 11:15:00 Completed [facility] Shingrix Shingrix 2018-10-28 11:15:00 Completed [facility] Shingrix Shingrix 2018-10-28 11:15:00 Completed [facility] Shingrix Shingrix 2018-10-28 11:15:00 [facility] Shingrix Shingrix 2018-10-28 11:15:00 Completed [facility] Sh[facility] Shingrix 2018-10-28 11:15:00 [facility] Shingrix 2018-10-28 11:15:00 Completed [facility] Shingrix Shingrix 2018-10-28 11:15:00 Completed [facility] Shingrix Shingrix 2018-10-28 11:15:00 Completed [facility] Shingrix Shingrix 2018-10-28 11:15:00 Completed [facility] Shingrix Shingrix 2018-10-28 11:15:00 Completed [facility] Shingrix Shingrix 2018-10-28 11:15:00 Completed [facility] Shingrix Shingrix 2018-10-28 11:15:00 Completed [facility] Shingrix Shingrix 2018-10-28 11:15:00 Completed [facility] Shingrix Shingrix 2018-10-28 11:15:00 Completed [facility] Shingrix Shingrix 2018-10-28 11:15:00 Completed [facility] Shingrix Shingrix 2018-10-28 11:15:00 Completed [facility] Shingrix Shingrix 2018-10-28 11:15:00 Completed [facility] Shingrix Shingrix 2018-10-28 11:15:00 Completed [facility] Shingrix Shingrix 2018-10-28 11:15:00 Completed [facility] Shingrix Shingrix 2018-10-28 11:15:00 Completed [facility] Adacel (Tdap) Adacel (Tdap) 2017-05-27 11:16:00 Completed [facility] Adacel (Tdap) Adacel (Tdap) 2017-05-27 11:16:00 [facility]pleted [facility] Adacel (Tdap) Adacel (Tdap) 2017-05-27 11:16:00 Completed [facility] Adacel (Tdap) Adacel (Tdap) 2017-05-27 11:16:00 Completed [facility] Adacel (Tdap) Adacel (Tdap) 2017-05-27 11:16:00 Completed [facility] Adacel (Tdap) Adacel (Tdap) 2017-05-27 11:16:00 Completed [facility] Adacel (Tdap) Adacel (Tdap) 2017-05-27 11:16:00 Completed [facility] Adacel (Tdap) Adacel (Tdap) 2017-05-27 11:16:00 Completed [facility] Adacel (Tdap) Adacel (Tdap) 2017-05-27 11:16:00 Completed [facility] Adacel (Tdap) Adacel (Tdap) 2017-05-27 11:16:00 Completed [facility] Adacel (Tdap) Adacel (Tdap) 2017-05-27 11:16:00 Completed [facility] Adacel (Tdap) Adacel (Tdap) 2017-05-27 11:16:00 Completed [facility] Adacel (Tdap) Adacel (Tdap) 2017-05-27 11:16:00 Completed [facility] Adacel (Tdap) Adacel (Tdap) 2017-05-27 11:16:00 Completed [facility] Adacel (Tdap) Adacel (Tdap) 2017-05-27 11:16:00 Completed [facility] Adacel (Tdap) Adacel (Tdap) 2017-05-27 11:16:00 Completed [facility] Adacel (Tdap) Adacel (Tdap) 2017-05-27 11:16:00 Completed [facility] Adacel (Tdap) Adacel (Tdap) 2017-05-27 11:16:00 Completed [facility] Adacel (Tdap) Adacel (Tdap) 2017-05-27 11:16:00 Completed [facility] Adacel (Tdap) Adacel (Tdap) 2017-05-27 11:16:00 Completed [facility] Adacel (Tdap) Adacel (Tdap) 2017-05-27 11:16:00 Completed [facility] Adacel (Tdap) Adacel (Tdap) 2017-05-27 11:16:00 Completed [facility] Adacel (Tdap) Adacel (Tdap) 2017-05-27 11:16:00 Completed [facility] Adacel (Tdap) Adacel (Tdap) 2017-05-27 11:16:00 Completed [facility] Adacel (Tdap) Adacel (Tdap) 2017-05-27 11:16:00 Completed [facility] Adacel (Tdap) Adacel (Tdap) 2017-05-27 11:16:00 Completed [facility] Adacel (Tdap) Adacel (Tdap) 2017-05-27 11:16:00 Completed [facility] Adacel (Tdap) Adacel (Tdap) 2017-05-27 11:16:00 Completed [facility] Adacel (Tdap) Adacel (Tdap) 2017-05-27 11:16:00 Completed [facility] Adacel (Tdap) Adacel (Tdap) 2017-05-27 11:16:00 Completed [facility] Adacel (Tdap) Adacel (Tdap) 2017-05-27 11:16:00 Completed [facility] Adacel (Tdap) Adacel (Tdap) 2017-05-27 11:16:00 Completed [facility] Adacel (Tdap) Adacel (Tdap) 2017-05-27 11:16:00 Completed [facility] Adacel (Tdap) Adacel (Tdap) 2017-05-27 11:16:00 Completed [facility] Adacel (Tdap) Adacel (Tdap) 2017-05-27 11:16:00 Completed [facility] Moderna COVID-19 Vaccine Moderna COVID-19 Vaccine Unknown Completed [facility] Moderna COVID-19 Vaccine Moderna COVID-19 Vaccine Unknown Completed [facility] Shingrix Unknown Completed [facility] Pneumovax (PPSV23) Pneumovax (PPSV23) Unknown Completed [facility] FLUZONE HIGH DOSE OVER 65 FLUZONE HIGH DOSE OVER 65 Unknown Completed [facility] Adacel (Tdap) Adacel (Tdap) Unknown Completed [facility] Moderna COVID-19 Vaccine Moderna COVID-19 Vaccine Unknown Completed [facility] Moderna COVID-19 Vaccine Moderna COVID-19 Vaccine Unknown Completed [facility] Sh[facility]rix Unknown Completed [facility] Pneumovax (PPSV23) Pneumovax (PPSV23) Unknown Completed [facility] FLUZONE HIGH DOSE OVER 65 FLUZONE HIGH DOSE OVER 65 Unknown Completed [facility] Adacel (Tdap) Adacel (Tdap) Unknown Completed [facility] Moderna COVID-19 Vaccine Moderna COVID-19 Vaccine Unknown Completed [facility] Moderna COVID-19 Vaccine Moderna COVID-19 Vaccine Unknown Completed [facility] Shingrix Unknown Completed [facility] Pneumovax (PPSV23) Pneumovax (PPSV23) Unknown Completed [facility] FLUZONE HIGH DOSE OVER 65 FLUZONE HIGH DOSE OVER 65 Unknown Completed [facility] Adacel (Tdap) Adacel (Tdap) Unknown [facility] Moderna COVID-19 Vaccine Unknown Completed [facility] Moderna COVID-19 Vaccine Moderna COVID-19 Vaccine Unknown Completed [facility] Shingrix Unknown Completed [facility] Pneumovax (PPSV23) Pneumovax (PPSV23) Unknown Completed [facility] FLUZONE HIGH DOSE OVER 65 FLUZONE HIGH DOSE OVER 65 Unknown Completed [facility] Adacel (Tdap) Adacel (Tdap) Unknown Completed [facility] Moderna COVID-19 Vaccine Moderna COVID-19 Vaccine Unknown Completed [facility] Moderna COVID-19 Vaccine Moderna COVID-19 Vaccine Unknown Completed [facility] Shingrix Unknown Completed [facility] Pneumovax (PPSV23) Pneumovax (PPSV23) Unknown Completed [facility] FLUZONE HIGH DOSE OVER 65 FLUZONE HIGH DOSE OVER 65 Unknown Completed [facility] Adacel (Tdap) Adacel (Tdap) Unknown Completed [facility] Vital Signs Vital Name Observation Time Observation Value Comments S ource height 2022-12-06 09:20:00 67 [in_i] [facility] weight 2022-12-06 09:20:00 213.0 [lb_av] Co [facility] temperature 2022-12-06 09:20:00 97.2 [degF] Com [facility] bmi 2022-12-06 09:20:00 33.36 kg/m2 [facility] oximetry 2022-12-06 09:20:00 96 % [facility] respiratory rate 2022-12-06 09:20:00 [facility] blood pressure systolic 2022-12-06 09:20:00 152 mm[Hg] [facility] blood pressure diastolic 2022-12-06 09:20:00 78 mm[Hg] [facility] height 2022-12-06 09:30:00 67 [in_i] [facility] weight 2022-12-06 09:30:00 213.0 [lb_av] [facility] temperature 2022-12-06 09:30:00 97.2 [degF] Com [facility] bmi 2022-12-06 09:30:00 33.36 kg/m2 [facility] oximetry 2022-12-06 09:30:00 96 % [facility] respiratory rate 2022-12-06 09:30:00 17 /min [facility] blood pressure systolic 2022-12-06 09:30:00 152 mm[Hg] [facility] blood pressure diastolic 2022-12-06 09:30:00 78 mm[Hg] [facility] height 2022-09-13 09:00:00 67 [in_i] [facility] weight 2022-09-13 09:00:00 214 [lb_av] Comm [facility] temperature 2022-09-13 09:00:00 97.2 [degF] Com [facility] bmi 2022-09-13 09:00:00 33.51 kg/m2 [facility] blood pressure systolic 2022-09-13 09:00:00 116 mm[Hg] [facility] blood pressure diastolic 2022-09-13 09:00:00 68 mm[Hg] [facility] height 2022-07-30 09:30:00 67 [in_i] [facility] weight 2022-07-30 09:30:00 214.3 [lb_av] [facility] temperature 2022-07-30 09:30:00 96.6 [degF] Com [facility] bmi 2022-07-30 09:30:00 33.56 kg/m2 [facility] oximetry 2022-07-30 09:30:00 97 % [facility] respiratory rate 2022-07-30 09:30:00 18 /min [facility] blood pressure systolic 2022-07-30 09:30:00 129 mm[Hg] [facility] blood pressure diastolic 2022-07-30 09:30:00 67 mm[Hg] [facility] height 2022-06-27 11:45:00 67 [in_i] [facility] weight 2022-06-27 11:45:00 221 [lb_av] Comm on [facility] temperature 2022-06-27 11:45:00 97.6 [degF] Com [facility] bmi 2022-06-27 11:45:00 34.61 kg/m2 [facility] oximetry 2022-06-27 11:45:00 95 % [facility] respiratory rate 2022-06-27 11:45:00 16 /min [facility] blood pressure systolic 2022-06-27 11:45:00 139 mm[Hg] [facility] blood pressure diastolic 2022-06-27 11:45:00 65 mm[Hg] Common [facility] height 2022-06-15 09:30:00 67 [in_i] [facility] weight 2022-06-15 09:30:00 222 [lb_av] Comm [facility] temperature 2022-06-15 09:30:00 98.2 [degF] Com [facility] bmi 2022-06-15 09:30:00 34.77 kg/m2 [facility] blood pressure systolic 2022-06-15 09:30:00 128 mm[Hg] [facility] blood pressure diastolic 2022-06-15 09:30:00 84 mm[Hg] [facility] height 2022-05-23 08:15:00 67 [in_i] [facility] weight 2022-05-23 08:15:00 222 [lb_av] Comm [facility] temperature 2022-05-23 08:15:00 98.0 [degF] Com [facility] bmi 2022-05-23 08:15:00 34.77 kg/m2 [facility] oximetry 2022-05-23 08:15:00 97 % [facility] blood pressure systolic 2022-05-23 08:15:00 132 mm[Hg] [facility] blood pressure diastolic 2022-05-23 08:15:00 84 mm[Hg] Common [facility] height 2022-04-25 10:00:00 67 [in_i] [facility] weight 2022-04-25 10:00:00 216.2 [lb_av] [facility] temperature 2022-04-25 10:00:00 97.6 [degF] Com [facility] bmi 2022-04-25 10:00:00 33.86 kg/m2 [facility] oximetry 2022-04-25 10:00:00 98 % [facility] respiratory rate 2022-04-25 10:00:00 16 /min [facility] blood pressure systolic 2022-04-25 10:00:00 126 mm[Hg] [facility] blood pressure diastolic 2022-04-25 10:00:00 71 mm[Hg] [facility] height 2022-04-12 09:00:00 67 [in_i] [facility] weight 2022-04-12 09:00:00 219 [lb_av] Comm [facility] temperature 2022-04-12 09:00:00 97.2 [degF] Com [facility] bmi 2022-04-12 09:00:00 34.3 kg/m2 [facility] blood pressure systolic 2022-04-12 09:00:00 124 mm[Hg] [facility] blood pressure diastolic 2022-04-12 09:00:00 72 mm[Hg] [facility] height 2022-03-29 14:20:00 67 [in_i] [facility] weight 2022-03-29 14:20:00 218.1 [lb_av] [facility] temperature 2022-03-29 14:20:00 96.8 [degF] Com [facility] bmi 2022-03-29 14:20:00 34.16 kg/m2 Comm [facility] oximetry 2022-03-29 14:20:00 95 % [facility] respiratory rate 2022-03-29 14:20:00 17 /min [facility] blood pressure systolic 2022-03-29 14:20:00 127 mm[Hg] [facility] blood pressure diastolic 2022-03-29 14:20:00 63 mm[Hg] [facility] height 2022-03-29 14:00:00 67 [in_i] [facility] weight 2022-03-29 14:00:00 218.1 [lb_av] [facility] temperature 2022-03-29 14:00:00 96.8 [degF] Com [facility] bmi 2022-03-29 14:00:00 34.16 kg/m2 [facility] oximetry 2022-03-29 14:00:00 95 % [facility] respiratory rate 2022-03-29 14:00:00 17 /min [facility] blood pressure systolic 2022-03-29 14:00:00 127 mm[Hg] [facility] blood pressure diastolic 2022-03-29 14:00:00 63 mm[Hg] [facility] height 2022-03-07 10:15:00 67 [in_i] [facility] weight 2022-03-07 10:15:00 217.4 [lb_av] [facility] temperature 2022-03-07 10:15:00 97.5 [degF] Com [facility] bmi 2022-03-07 10:15:00 34.05 kg/m2 [facility] oximetry 2022-03-07 10:15:00 96 % [facility] respiratory rate 2022-03-07 10:15:00 16 /min [facility] blood pressure systolic 2022-03-07 10:15:00 146 mm[Hg] [facility] blood pressure diastolic 2022-03-07 10:15:00 68 mm[Hg] [facility] height 2022-01-11 10:15:00 67 [in_i] [facility] weight 2022-01-11 10:15:00 214 [lb_av] Comm [facility] temperature 2022-01-11 10:15:00 97.8 [degF] Com [facility] bmi 2022-01-11 10:15:00 33.51 kg/m2 [facility] blood pressure systolic 2022-01-11 10:15:00 134 mm[Hg] [facility] blood pressure diastolic 2022-01-11 10:15:00 74 mm[Hg] [facility] height 2022-01-04 10:45:00 67 [in_i] [facility] weight 2022-01-04 10:45:00 214 [lb_av] Comm [facility] bmi 2022-01-04 10:45:00 33.51 kg/m2 [facility] blood pressure systolic 2022-01-04 10:45:00 136 mm[Hg] [facility] blood pressure diastolic 2022-01-04 10:45:00 84 mm[Hg] [facility] height 2021-12-28 10:45:00 67 [in_i] [facility] weight 2021-12-28 10:45:00 214 [lb_av] Comm [facility] temperature 2021-12-28 10:45:00 97.2 [degF] Com [facility] bmi 2021-12-28 10:45:00 33.51 kg/m2 [facility] blood pressure systolic 2021-12-28 10:45:00 136 mm[Hg] [facility] blood pressure diastolic 2021-12-28 10:45:00 80 mm[Hg] [facility] height 2021-12-21 11:45:00 67 [in_i] [facility] weight 2021-12-21 11:45:00 210 [lb_av] Comm [facility] temperature 2021-12-21 11:45:00 98.6 [degF] Com [facility] bmi 2021-12-21 11:45:00 32.89 kg/m2 [facility] oximetry 2021-12-21 11:45:00 98 % [facility] respiratory rate 2021-12-21 11:45:00 16 /min [facility] blood pressure systolic 2021-12-21 11:45:00 132 mm[Hg] [facility] blood pressure diastolic 2021-12-21 11:45:00 68 mm[Hg] [facility] height 2021-12-04 08:15:00 67 [in_i] [facility] weight 2021-12-04 08:15:00 214 [lb_av] Comm [facility] temperature 2021-12-04 08:15:00 97.2 [degF] Com [facility] bmi 2021-12-04 08:15:00 33.51 kg/m2 [facility] blood pressure systolic 2021-12-04 08:15:00 142 mm[Hg] [facility] blood pressure diastolic 2021-12-04 08:15:00 84 mm[Hg] [facility] height 2021-11-23 10:00:00 67 [in_i] [facility] weight 2021-11-23 10:00:00 213.3 [lb_av] [facility] temperature 2021-11-23 10:00:00 97.7 [degF] Com [facility] bmi 2021-11-23 10:00:00 33.4 kg/m2 [facility] oximetry 2021-11-23 10:00:00 93 % [facility] respiratory rate 2021-11-23 10:00:00 17 /min [facility] blood pressure systolic 2021-11-23 10:00:00 136 mm[Hg] [facility] blood pressure diastolic 2021-11-23 10:00:00 63 mm[Hg] [facility] respiratory rate 2021-09-22 10:30:00 18 /min [facility] blood pressure systolic 2021-09-22 10:30:00 129 mm[Hg] [facility] blood pressure diastolic 2021-09-22 10:30:00 63 mm[Hg] [facility] height 2021-09-22 10:30:00 67 [in_i] [facility] weight 2021-09-22 10:30:00 214.0 [lb_av] Co [facility] temperature 2021-09-22 10:30:00 98.4 [degF] Com [facility] bmi 2021-09-22 10:30:00 33.51 kg/m2 Comm [facility] oximetry 2021-09-22 10:30:00 91 % [facility] height 2021-07-25 10:40:00 67 [in_i] [facility] weight 2021-07-25 10:40:00 215.4 [lb_av] Co [facility] temperature 2021-07-25 10:40:00 97.8 [degF] Com [facility] bmi 2021-07-25 10:40:00 33.73 kg/m2 Comm [facility] oximetry 2021-07-25 10:40:00 97 % [facility] respiratory rate 2021-07-25 10:40:00 13 /min [facility] blood pressure systolic 2021-07-25 10:40:00 132 mm[Hg] [facility] blood pressure diastolic 2021-07-25 10:40:00 76 mm[Hg] [facility] height 2021-06-08 10:30:00 67 [in_i] [facility] weight 2021-06-08 10:30:00 213 [lb_av] Comm [facility] temperature 2021-06-08 10:30:00 97.2 [degF] Com [facility] bmi 2021-06-08 10:30:00 33.36 kg/m2 [facility] blood pressure systolic 2021-06-08 10:30:00 128 mm[Hg] Common [facility] blood pressure diastolic 2021-06-08 10:30:00 76 mm[Hg] [facility] height 2021-05-09 10:40:00 67 [in_i] [facility] weight 2021-05-09 10:40:00 217 [lb_av] Comm [facility] bmi 2021-05-09 10:40:00 33.98 kg/m2 [facility] height 2021-04-25 09:20:00 67 [in_i] [facility] weight 2021-04-25 09:20:00 217.0 [lb_av] [facility] temperature 2021-04-25 09:20:00 96.9 [degF] Com [facility] bmi 2021-04-25 09:20:00 33.98 kg/m2 Comm [facility] oximetry 2021-04-25 09:20:00 90 % [facility] respiratory rate 2021-04-25 09:20:00 16 /min [facility] blood pressure systolic 2021-04-25 09:20:00 130 mm[Hg] [facility] blood pressure diastolic 2021-04-25 09:20:00 80 mm[Hg] Common [facility] height 2021-04-25 11:20:00 67 [in_i] [facility] weight 2021-04-25 11:20:00 217 [lb_av] Comm [facility] temperature 2021-04-25 11:20:00 96.9 [degF] Com [facility] bmi 2021-04-25 11:20:00 33.98 kg/m2 [facility] oximetry 2021-04-25 11:20:00 98 % [facility] respiratory rate 2021-04-25 11:20:00 16 /min [facility] blood pressure systolic 2021-04-25 11:20:00 130 mm[Hg] [facility] blood pressure diastolic 2021-04-25 11:20:00 80 mm[Hg] [facility] height 2020-11-23 15:30:00 67 [in_i] [facility] weight 2020-11-23 15:30:00 212.7 [lb_av] [facility] temperature 2020-11-23 15:30:00 97.2 [degF] Com [facility] bmi 2020-11-23 15:30:00 33.31 kg/m2 [facility] oximetry 2020-11-23 15:30:00 96 % [facility] respiratory rate 2020-11-23 15:30:00 16 /min [facility] blood pressure systolic 2020-11-23 15:30:00 136 mm[Hg] [facility] blood pressure diastolic 2020-11-23 15:30:00 65 mm[Hg] [facility] Encounters Start Date/Time End Date/Time Encounter Type Admission Type [facility]ending [facility] Care Department Encounter ID Source 2022-06-15 09:25:01 Outpatient [facility]te [facility] [id number] [facility] 2022-06-13 10:07[facility]02 [id number] 2022-06-12 08:01:01 Outpatient Arechiga, Chris [facility] [id number] [facility] 2022-06-11 09:57:02 [facility] [id number] [facility] 2022-03-27 14:25:01 [facility] [id number] [facility] 2021-12-28 09:42:02 [facility] [id number] [facility] 2021-11-20 15:36:04 [facility] [id number] [facility] 2021-06-21 14:35:03 [facility] [id number] [facility] 2021-06-21 14:25:16 [facility] [id number] [facility] [facility] 2021-06-21 14:24:32 Outpatient Arechiga, Chris [facility] [id number] [facility] 2021-06-21 14:24:11 Outpatient Arechiga, Chris [facility] [id number] [facility] 2021-06-21 13:21:19 Outpatient Arechiga, Chris [facility] [id number] [facility] 2022-12-06 00:00:00 2022-12-06 00:00:00 OFFICE VISIT ESTAB PT LEVEL 4 [facility] [id number] [facility] 2022-12-06 00:00:00 2022-12-06 00:00:00 SUB ANNUAL [facility] VISIT [facility] [id number] [facility] 2022-09-13 00:00:00 2022-09-13 00:00:00 OFFICE VISIT ESTAB PT LEVEL 4 [facility] [id number] [facility] 2022-07-31 00:00:00 2022-07-31 00:00:00 (TEL) [facility] [id number] [facility] 2022-07-30 00:00:00 2022-07-30 00:00:00 OFFICE VISIT ESTAB PT LEVEL 4 [facility] [id number] [facility] 2022-06-27 00:00:00 2022-06-27 00:00:00 OFFICE VISIT ESTAB PT LEVEL 2 [facility] [id number] [facility] 2022-06-15 00:00:00 2022-06-15 00:00:00 OFFICE VISIT ESTAB PT LEVEL 4 [facility] [id number] [facility] 2022-06-12 00:00:00 2022-06-12 00:00:00 (TEL) [facility] [id number] [facility] 2022-06-07 00:00:00 2022-06-07 00:00:00 (TEL) [facility] [id number] [facility] 2022-05-23 00:00:00 2022-05-23 00:00:00 OFFICE VISIT EST PT LEVEL 3 [facility] [id number] [facility] 2022-05-02 00:00:00 2022-05-02 00:00:00 (TEL) [facility] [id number] [facility] 2022-04-25 00:00:00 2022-04-25 00:00:00 (NV) Nurse Visit [facility] [id number] [facility] 2022-04-12 00:00:00 2022-04-12 00:00:00 OFFICE VISIT ESTAB PT LEVEL 4 [facility] [id number] [facility] 2022-03-29 00:00:00 2022-03-29 00:00:00 OFFICE VISIT ESTAB PT LEVEL 4 [facility] [id number] [facility] 2022-03-29 00:00:00 2022-03-29 00:00:00 SUB ANNUAL [facility] VISIT [facility] [id number] [facility] 2022-03-07 00:00:00 2022-03-07 00:00:00 OFFICE VISIT ESTAB PT LEVEL 4 [facility] [id number] [facility] 2022-02-28 00:00:00 2022-02-28 00:00:00 (TEL) [facility] [id number] [facility] 2022-02-21 00:00:00 2022-02-21 00:00:00 (TEL) [facility] [id number] [facility] 2022-01-11 00:00:00 2022-01-11 00:00:00 (IN/ASP) INJ ASP [facility] [id number] [facility] 2022-01-04 00:00:00 2022-01-04 00:00:00 (IN/ASP) INJ ASP [facility] [id number] [facility] 2022-01-02 00:00:00 2022-01-02 00:00:00 (TEL) [facility] [id number] [facility] 2021-12-28 00:00:00 2021-12-28 00:00:00 (IN/ASP) INJ ASP [facility] [id number] [facility] 2021-12-21 00:00:00 2021-12-21 00:00:00 OFFICE VISIT ESTAB PT LEVEL 4 [facility] [id number] [facility] 2021-12-08 00:00:00 2021-12-08 00:00:00 (TEL) [facility] [id number] [facility] 2021-12-04 00:00:00 2021-12-04 00:00:00 (TEL) [facility] [id number] [facility] 2021-12-04 00:00:00 2021-12-04 00:00:00 OFFICE VISIT ESTAB PT LEVEL 4 [facility] [id number] [facility] 2021-11-23 00:00:00 2021-11-23 00:00:00 OFFICE VISIT ESTAB PT LEVEL 4 [facility] [id number] [facility] 2021-09-22 00:00:00 2021-09-22 00:00:00 OFFICE VISIT NEW PT LEVEL 4 [facility] [id number] [facility] 2021-08-17 00:00:00 2021-08-17 00:00:00 (TEL) [facility] [id number] [facility] 2021-07-25 00:00:00 2021-07-25 00:00:00 OFFICE VISIT ESTAB PT LEVEL 4 [facility] [id number] [facility] 2021-06-08 00:00:00 2021-06-08 00:00:00 OFFICE VISIT NEW PT LEVEL 4 [facility] [id number] [facility] 2021-05-09 00:00:00 2021-05-09 00:00:00 OFFICE VISIT EST PT LEVEL 3 [facility] [id number] [facility] 2021-05-08 00:00:00 2021-05-08 00:00:00 (TEL) [facility] [id number] [facility] 2021-05-02 00:00:00 2021-05-02 00:00:00 (TEL) [facility] [id number] [facility] 2021-04-25 00:00:00 2021-04-25 00:00:00 SUB ANNUAL [facility] VISIT [facility] [id number] [facility] 2021-04-25 00:00:00 2021-04-25 00:00:00 OFFICE VISIT ESTAB PT LEVEL 4 [facility] [id number] [facility] 2021-02-09 00:00:00 2021-02-09 00:00:00 Outpatient [facility] [id number] [facility] 2021-01-24 00:00:00 2021-01-24 00:00:00 Outpatient [facility] [id number] [facility] 2020-12-09 00:00:00 2020-12-09 00:00:00 Outpatient [facility] [id number] [facility] 2020-11-23 00:00:00 2020-11-23 00:00:00 OFFICE VISIT NEW PT LEVEL 4 [facility] [id number] [facility] Results Test Description Test Time Test Comments Results Result Co mments Source LIPID PANEL WITH REFLEX DIRECT [id number] 00:00:00* Test Item Value Reference Range Interpretation Comme nts CALC LDL CHOL (test code = 86127-2) 116 MG/DL See_Comment H [Automated [employer]] The system which generated this result transmitted reference range: <100 MG/DL. The reference range was not used to interpret this result as normal/abnormal. CHOLESTEROL (test code = 2093-3) 192 MG/DL See_Comment [Automated [employer]] The system which generated this result transmitted reference range: <200 MG/DL. The reference range was not used to interpret this result as normal/abnormal. HDL CHOLESTEROL (test code = 2085-9) 56 MG/DL See_Comment [Automated [employer]] The system which generated this result transmitted reference range: >39 MG/DL. The reference range was not used to interpret this result as normal/abnormal. RISK RATIO LDL/HDL (test code = 98701-0) 2.07 RATIO See_Comment [Automated message] The system which generated this result transmitted reference range: <3.55 RATIO. The reference range was not used to interpret this result as normal/abnormal. TRIGLYCERIDES (test code = 2571-8) 102 MG/DL See_Comment [Automated [employer]] The system which generated this result transmitted reference range: <150 MG/DL. The reference range was not used to interpret this result as normal/abnormal. PATHOLOGIST SMEAR [id number] 00:00:00* Test Item Value Reference Range Interpretation Comme nts BASOPHILS (test code = 29988-0) 0.6 % COMMENTS (test code = 69657-4) (NOTE) DIAGNOSIS: (test code = 77289-2) (NOTE) EOSINOPHILS (test code = 03392-2) 4.3 % HEMATOCRIT (test code = 54707-8) 42.6 % See_Comment [Automated messa ge] The system which generated this result transmitted reference range: 40.0-51.0 %. The reference range was not used to interpret this result as normal/abnormal. HEMOGLOBIN (test code = 718-7) 14.2 G/DL See_Comment [Automated messa ge] The system which generated this result transmitted reference range: 13.5-17.0 G/DL. The reference range was not used to interpret this result as normal/abnormal. LYMPHOCYTES (test code = 91276-2) 22.8 % MCH (test code = 78611-9) 31.3 PG See_Comment [Automated messa ge] The system which generated this result transmitted reference range: 25.0-33.0 PG. The reference range was not used to interpret this result as normal/abnormal. MCHC (test code = 90340-0) 33.3 G/DL See_Comment [Automated messa ge] The system which generated this result transmitted reference range: 31.0-36.0 G/DL. The reference range was not used to interpret this result as normal/abnormal. MCV (test code = 79887-5) 94.0 fL See_Comment [Automated messa ge] The system which generated this result transmitted reference range: 80.0-99.0 fL. The reference range was not used to interpret this result as normal/abnormal. MICROSCOPIC DESCRIPTION: (test code = 98786-2) (NOTE) MONOCYTES (test code = 28406-5) 8.8 % NEUTROPHILS (test code = 90894-9) 63.3 % NUCLEATED RBCS (test code = 63102-3) 0.0 /100 WBC'S See_Comment [Automated messa ge] The system which generated this result transmitted reference range: 0.0 /100 WBC'S. The reference range was not used to interpret this result as normal/abnormal. PATHOLOGIST: (test code = 87195-5) (NOTE) PLATELET COUNT (test code = 06928-5) 139 K/UL See_Comment [Automated messa ge] The system which generated this result transmitted reference range: 130-400 K/UL. The reference range was not used to interpret this result as normal/abnormal. RBC (test code = 12653-5) 4.53 M/UL See_Comment [Automated messa ge] The system which generated this result transmitted reference range: 4.50-6.10 M/UL. The reference range was not used to interpret this result as normal/abnormal. RDW (test code = 01389-7) 12.2 % See_Comment [Automated messa ge] The system which generated this result transmitted reference range: 11.5-15.0 %. The reference range was not used to interpret this result as normal/abnormal. WBC (test code = 65573-1) 6.5 K/UL See_Comment [Automated messa ge] The system which generated this result transmitted reference range: 3.5-11.0 K/UL. The reference range was not used to interpret this result as normal/abnormal. ALBUMIN/CREATININE RATIO, RANDOM [id number] 00:00:00* Test Item Value Reference Range Interpretation Comme nts ALBUMIN, URINE, RANDOM (test code = 65005-8) 1.1 MG/DL NOT ESTAB MG/DL CALC ALBUMIN/CREAT, RND (test code = 98676-5) 8 MG/G See_Comment [Automated messa ge] The system which generated this result transmitted reference range: <30 MG/G. The reference range was not used to interpret this result as normal/abnormal. CREATININE, URINE, CONC. (test code = 2161-8) 135.1 MG/DL NOT ESTAB MG/DL COMPREHENSIVE METABOLIC [id number] 00:00:00* Test Item Value Reference Range Interpretation Comme nts ALBUMIN (test code = 1751-7) 4.2 G/DL See_Comment [Automated messa ge] The system which generated this result transmitted reference range: 3.5-5.2 G/DL. The reference range was not used to interpret this result as normal/abnormal. ALKALINE PHOSPHATASE (test code = 6768-6) 77 U/L See_Comment [Automated message] The system which generated this result transmitted reference range: 40-125 U/L. The reference range was not used to interpret this result as normal/abnormal. BILIRUBIN, TOTAL (test code = 1975-2) 0.4 MG/DL See_Comment [Automated message] The system which generated this result transmitted reference range: <=1.2 MG/DL. The reference range was not used to interpret this result as normal/abnormal. BUN (test code = 3094-0) 14 MG/DL See_Comment [Automated messa ge] The system which generated this result transmitted reference range: 8-23 MG/DL. The reference range was not used to interpret this result as normal/abnormal. CALCIUM (test code = 51567-0) 9.8 MG/DL See_Comment [Automated messa ge] The system which generated this result transmitted reference range: 8.5-10.5 MG/DL. The reference range was not used to interpret this result as normal/abnormal. CALC A/G RATIO (test code = 1759-0) 1.8 RATIO See_Comment [Automated messa ge] The system which generated this result transmitted reference range: 1.0-2.6 RATIO. The reference range was not used to interpret this result as normal/abnormal. CALC BUN/CREAT (test code = 3097-3) 15 RATIO See_Comment [Automated messa ge] The system which generated this result transmitted reference range: 6-28 RATIO. The reference range was not used to interpret this result as normal/abnormal. CALC GLOBULIN (test code = 87043-5) 2.3 G/DL See_Comment [Automated messa ge] The system which generated this result transmitted reference range: 1.9-3.7 G/DL. The reference range was not used to interpret this result as normal/abnormal. CARBON DIOXIDE (test code = 1963-8) 25 MEQ/L See_Comment [Automated messa ge] The system which generated this result transmitted reference range: 19-31 MEQ/L. The reference range was not used to interpret this result as normal/abnormal. CHLORIDE (test code = 2075-0) 103 MEQ/L See_Comment [Automated messa ge] The system which generated this result transmitted reference range: 95-107 MEQ/L. The reference range was not used to interpret this result as normal/abnormal. CREATININE (test code = 2160-0) 0.91 MG/DL See_Comment [Automated messa ge] The system which generated this result transmitted reference range: 0.80-1.40 MG/DL. The reference range was not used to interpret this result as normal/abnormal. eGFR (2020 CKD-EPI) (test code = 95709-5) 81 ML/MIN/1.73 See_Comment [Automated messa ge] The system which generated this result transmitted reference range: >60 ML/MIN/1.73. The reference range was not used to interpret this result as normal/abnormal. GLUCOSE (test code = 1558-6) 121 MG/DL See_Comment H [Automated messa ge] The system which generated this result transmitted reference range: 70-99 MG/DL. The reference range was not used to interpret this result as normal/abnormal. POTASSIUM (test code = 2823-3) 4.5 MEQ/L See_Comment [Automated messa ge] The system which generated this result transmitted reference range: 3.5-5.4 MEQ/L. The reference range was not used to interpret this result as normal/abnormal. PROTEIN, TOTAL (test code = 2885-2) 6.5 G/DL See_Comment [Automated messa ge] The system which generated this result transmitted reference range: 6.1-8.3 G/DL. The reference range was not used to interpret this result as normal/abnormal. AST (test code = 1920-8) 22 U/L See_Comment [Automated messa ge] The system which generated this result transmitted reference range: 9-50 U/L. The reference range was not used to interpret this result as normal/abnormal. ALT (test code = 1742-6) 23 U/L See_Comment [Automated messa ge] The system which generated this result transmitted reference range: 5-50 U/L. The reference range was not used to interpret this result as normal/abnormal. SODIUM (test code = 2951-2) 140 MEQ/L See_Comment [Automated messa ge] The system which generated this result transmitted reference range: 133-146 MEQ/L. The reference range was not used to interpret this result as normal/abnormal.
[2023-05-01 23:37] LABS: Absolute Lymphocytes (CBC) 0.7 K/uL (0.7-4.9); Hematocrit 39.5 % (39.6-49.0); MCV 95.3 fL (80-100); Platelets 110 thou/uL (152-406); RBC Red Blood Cell Count 4.15 M/uL (4.33-5.43)
[2023-05-01 23:59] LABS: Albumin 3.3 g/dL (3.4-5.0); Bilirubin Total 0.4 mg/dL (0.2-1.0); Potassium 3.8 mEq/L (3.5-5.1); Protein, Total 6.5 g/dL (6.4-8.2)
[2023-05-02 04:34] LABS: Calcium Oxalate Crystals- Ur Few /HPF (None Seen); Specific Gravity 1.021 (1.005-1.030); Urine Bacteria None Seen /HPF (<20); Urine Bilirubin NEGATIVE (Negative); Urine Blood Negative (Negative); Urine Clarity Clear (Clear); Urine Color Yellow (Yellow); Urine Glucose NEGATIVE (Negative); Urine Mucus Slight /HPF (None Seen); Urine Protein NEGATIVE (Negative); Urine RBC <5 /HPF (None Seen); Urine Urobilinogen Normal (Normal); Urine pH 5.5 (5.0-7.0)
--- NOTE | 2023-05-02 04:37 | EDPHYS ---
Physician Documentation [facility] Name: Yaw Snider Age: 87 yrs Sex: Male : 1935 Arrival Date: 05/01/2023 Time: 22:08 Bed 14 Private MD: ED Physician Bethel Dorado HPI: 05/01 23:36 This 87 yrs old Male presents to ER via Wheelchair with complaints of Low Back Pain, kb Pain With Urination, Altered Mental Status, PT possibly exposed to COVID. 23:36 Patient is a 87-year-old male who is brought in by his son for weakness that began this kb morning upon patient waking up. Also reports patient has been complaining of low back pain and has had a slight cough. Patient reports back pain has been going on for a couple of days but got better after a pain relieving ointment was placed on it. Denies any other pain, denies fever, denies shortness of breath. Historical: - Allergies: 22:18 No Known Allergies; vc1 - PMHx: 22:18 Hypertensive disorder; Atrial fibrillation; Heart murmur; vc1 - PSHx: 22:18 prostate surgery (lift); Glaucoma sx; vc1 - Immunization history:: Client reports receiving the 2nd dose of the Covid vaccine, Flu vaccine is up to date. - Social history:: Smoking status: Patient denies any tobacco usage or history of. ROS: 23:34 Constitutional: Negative for fever, chills, and weight loss, kb 23:34 Respiratory: Positive for cough, 23:34 Back: Positive for of the low back area, 23:34 Neuro: Positive for weakness, 23:34 All other systems are negative, Exam: 23:35 Constitutional: This is a well developed, well nourished patient who is awake, alert, kb and in no acute distress. Head/Face: Normocephalic, atraumatic. ENT: Moist Mucous membranes Cardiovascular: Regular rate Respiratory: Respirations even and unlabored. No increased work of breathing. Talking in full sentences Abdomen/GI: Soft, non-tender. No distention Skin: Warm, dry with normal turgor. Normal color. MS/ Extremity: Pulses equal, no cyanosis. Neurovascular intact. Full, normal range of motion. Neuro: Awake and alert, GCS 15, oriented to person, place, time, and situation. Moves all extremities. Normal gait. 23:35 Back: pain, that is mild, of the low back area and mid back area, Vital Signs: 22:14 BP 107 / 62; Pulse 89; Resp 20; Temp 99.6; Pulse Ox 92% on R/A; Weight 96.16 kg; Height vc1 5 ft. 4 in. ; 05/02 00:11 BP 101 / 63; Pulse 63; Resp 18 S; Pulse Ox 96% on 1.5 lpm NC; lg3 04:46 BP 109 / 61; Pulse 61; Resp 17 S; Pulse Ox 97% on R/A; lg3 05/01 22:14 Body Mass Index 36.39 (96.16 kg, 162.56 cm) vc1 MDM: 05/01 22:47 Patient medically screened. kb 23:35 Differential diagnosis: strain, UTI, electrolyte imbalance, anemia, covid, flu. Data kb reviewed: vital signs, nurses notes. Historians other than the Patient: Daughter/Son: son. 05/02 00:46 Counseling: I had a detailed discussion with the patient and/or guardian regarding the kb historical points, exam findings, and any diagnostic results supporting the discharge/admit diagnosis, lab results, radiology results, the need for outpatient follow up, a family practitioner, to return to the emergency department if symptoms worsen or persist or if there are any questions or concerns that arise at home. 00:51 Transition of care: After a detail discussion of the patient's case, care is kb transferred to Bethel Dorado MD. 05/01 22:52 Order name: Flu; Complete Time: 00:19 kb 05/01 22:52 Order name: COVID-19 SARS RT PCR; Complete Time: 00:39 kb 05/01 22:52 Order name: CBC with Diff; Complete Time: 23:53 kb 05/01 22:52 Order name: CMP; Complete Time: 00:03 kb 05/02 04:22 Order name: Urinalysis W/Microscopic; Complete Time: 04:35 EDMS 05/01 22:52 Order name: Chest Single View XRAY kb 05/01 22:52 Order name: IV Start; Complete Time: 23:14 kb Administered Medications: No medications were administered Disposition: 00:31 Co-signature as Attending Physician, Bethel Dorado MD I agree with the assessment sp4 and plan of care. I reviewed the patient's care provided by the Advanced Practice Provider and agree with the diagnosis and treatment plan. Disposition Summary: 05/02/23 04:36 Discharge Ordered Notes: Location: Home sp4 Problem: new sp4 Symptoms: have improved sp4 Condition: Stable sp4 Diagnosis - SARS-associated coronavirus as the cause of diseases classified elsewhere sp4 - Acute COVID-19 sp4 Followup: kb - With: Emergency Department - When: As needed - Reason: Worsening of condition Followup: kb - With: Private Physician - When: 2 - 3 days - Reason: Recheck today's complaints, Continuance of care, Re-evaluation by your physician Discharge Instructions: - Discharge Summary Sheet kb - COVID-19 kb Forms: - Patient Portal Instructions sp4 Prescriptions: - Paxlovid 300 mg (150 mg x 2)-100 mg Oral Tablet, Dose Pack - take 1 dose pack ORAL route as directed on dose pack take TWO 150 mg tablets of sp4 nirmatrelvir with ONE 100 mg tablet of ritonavir twice daily for 5 days; 1 Pack; Refills: 0, Product Selection Permitted Signatures: Dispatcher [employer] EDJayna Enriquez, Megan Lindsay RN RN Bethel Hayes MD MD sp4 Corrections: (The following items were deleted from the chart) 05/01 22:20 22:18 PSHx: None; vc1 vc1 23:15 23:04 Urinalysis+U.LAB.BRZ ordered. EDMS EDMS 05/02 03:57 00:42 Urinalysis+U.LAB.BRZ ordered. EDMS EDMS 04:22 04:00 Urinalysis W/Microscopic+U.LAB.BRZ ordered. EDMS EDMS
--- NOTE | 2023-05-02 04:37 | ER ---
Nurse's Notes [facility] Name: Yaw Snider Age: 87 yrs Sex: Male : 1935 Arrival Date: 05/01/2023 Time: 22:08 Bed 14 Private MD: Diagnosis: SARS-associated coronavirus as the cause of diseases classified elsewhere;Acute COVID-19 Presentation: 05/01 22:14 Chief complaint: Patient's son or daughter states: Today he's been weak barely will vc1 talk complaining of lower back pain. He's also had a cough and we may have been exposed to covid. Coronavirus screen: Vaccine status: Patient reports receiving the 2nd dose of the covid vaccine. cough unrelated to allergies, fatigue, Client presents with at least one sign or symptom that may indicate coronavirus-19. Ebola Screen: Patient negative for fever greater than or equal to 101.5 degrees Fahrenheit, and additional compatible Ebola Virus Disease symptoms Patient denies exposure to infectious person. Patient denies travel to an Ebola-affected area in the 21 days before illness onset. No symptoms or risks identified at this time. Initial Sepsis Screen: Does the patient meet any 2 criteria? No. Patient's initial sepsis screen is negative. Does the patient have a suspected source of infection? Yes: Dysuria/Frequency/Urgency/UTI. Risk Assessment: Do you want to hurt yourself or someone else? Patient reports no desire to harm self or others. Onset of symptoms was May 01, 2023. 22:14 Method Of Arrival: Wheelchair vc1 22:14 Acuity: RAMSES 3 vc1 Triage Assessment: 22:20 General: Appears in no apparent distress. uncomfortable, Behavior is cooperative, flat. vc1 Pain: Complains of pain in low back area Pain does not radiate. Noted to be grimacing. Neuro: Level of Consciousness is awake, obeys commands, lethargic, Oriented to person, place, time, situation. Cardiovascular: No deficits noted. Respiratory: Reports cough that is Airway is patent Respiratory effort is even, unlabored, Respiratory pattern is regular, symmetrical. GI: No deficits noted. No signs and/or symptoms were reported involving the gastrointestinal system. : Reports pain in lower back urinary frequency. Derm: No deficits noted. No signs and/or symptoms reported regarding the dermatologic system. Musculoskeletal: No deficits noted. No signs and/or symptoms reported regarding the musculoskeletal system. Historical: - Allergies: 22:18 No Known Allergies; vc1 - PMHx: 22:18 Hypertensive disorder; Atrial fibrillation; Heart murmur; vc1 - PSHx: 22:18 prostate surgery (lift); Glaucoma sx; vc1 - Immunization history:: Client reports receiving the 2nd dose of the Covid vaccine, Flu vaccine is up to date. - Social history:: Smoking status: Patient denies any tobacco usage or history of. Screenin:30 [facility] ED Fall Risk Assessment (Adult) History of falling in the last 3 months, lg3 including since admission No falls in past 3 months (0 pts). Abuse screen: Denies threats or abuse. Denies injuries from another. Nutritional screening: No deficits noted. Tuberculosis screening: No symptoms or risk factors identified. Assessment: 22:30 General: Appears in no apparent distress. comfortable, Behavior is calm, cooperative. lg3 Pain: Complains of pain in low back area. Neuro: No deficits noted. Carrero Agitation-Sedation Scale (RASS): 0 - Alert and Calm Level of Consciousness is awake, alert, obeys commands, Oriented to person, place, time, situation. Cardiovascular: No deficits noted. Denies chest pain, shortness of breath, Capillary refill < 3 seconds Clubbing of nail beds is absent JVD is absent Patient's skin is warm and dry. Respiratory: No deficits noted. Airway is patent Respiratory effort is even, unlabored, Respiratory pattern is regular, symmetrical. GI: No deficits noted. No signs and/or symptoms were reported involving the gastrointestinal system. Abdomen is round non-distended, obese. : Reports urgency, urinary frequency. EENT: No deficits noted. No signs and/or symptoms were reported regarding the EENT system. Derm: No deficits noted. No signs and/or symptoms reported regarding the dermatologic system. Skin is intact, is healthy with good turgor, Skin is dry, Skin is normal, Skin temperature is warm. Musculoskeletal: No deficits noted. Circulation, motion, and sensation intact. Range of motion: intact in all extremities. 1207 00:11 Reassessment: Patient appears in no apparent distress at this time. No changes from lg3 previously documented assessment. Patient and/or family updated on plan of care and expected duration. Pain level reassessed. Patient is alert, oriented x 3, equal unlabored respirations, skin warm/dry/pink. 02:19 Reassessment: Patient appears in no apparent distress at this time. No changes from lg3 previously documented assessment. Patient and/or family updated on plan of care and expected duration. Pain level reassessed. Patient is alert, oriented x 3, equal unlabored respirations, skin warm/dry/pink. 04:09 Reassessment: Patient appears in no apparent distress at this time. No changes from lg3 previously documented assessment. Patient and/or family updated on plan of care and expected duration. Pain level reassessed. Patient is alert, oriented x 3, equal unlabored respirations, skin warm/dry/pink. Vital Signs: 05/01 22:14 BP 107 / 62; Pulse 89; Resp 20; Temp 99.6; Pulse Ox 92% on R/A; Weight 96.16 kg; Height vc1 5 ft. 4 in. ; 05/02 00:11 BP 101 / 63; Pulse 63; Resp 18 S; Pulse Ox 96% on 1.5 lpm NC; lg3 04:46 BP 109 / 61; Pulse 61; Resp 17 S; Pulse Ox 97% on R/A; lg3 05/01 22:14 Body Mass Index 36.39 (96.16 kg, 162.56 cm) vc1 ED Course: 05/01 22:10 Patient arrived in ED. jj6 22:17 Triage completed. vc1 22:20 Arm band placed on right wrist. vc1 22:30 Patient has correct armband on for positive identification. Bed in low position. Call lg3 light in reach. Side rails up X 1. Client placed on continuous cardiac and pulse oximetry monitoring. NIBP monitoring applied. monitor technician on. Door closed. Noise minimized. Warm blanket given. Family accompanied patient. 22:30 Oxygen administration via nasal cannula 1.5 L. vc1 22:47 Jayna Nunn FNP-C [facility]. kb 22:47 Bethel Dorado MD is Attending Physician. kb 23:14 Flu Sent. kl 23:14 COVID-19 SARS RT PCR Sent. kl 23:14 CBC with Diff Sent. kl 23:14 CMP Sent. kl 23:15 Inserted saline lock: 20 gauge in right forearm, using aseptic technique. Blood ls5 collected. 23:29 Chest Single View XRAY In Process Unspecified. EDMS 05/02 04:46 No provider procedures requiring assistance completed. IV discontinued, intact, lg3 bleeding controlled, No redness/swelling at site. Pressure dressing applied. Administered Medications: No medications were administered Medication: 04:46 VIS not applicable for this client. lg3 Outcome: 04:36 Discharge ordered by MD. sp4 04:46 Discharged to home via wheelchair, with family, lg3 04:46 Condition: stable 04:46 Discharge instructions given to patient, civil cadd technician, Instructed on discharge instructions, follow up and referral plans. medication usage, Demonstrated understanding of instructions, follow-up care, medications, Prescriptions given X 1, 04:47 Patient left the ED. lg3 Signatures: Dispatcher [employer] EDJayna Enriquez, BUSINESS SERVICES SALES AGENT-C BUSINESS SERVICES SALES AGENT-Deborah Franco RN Betzaida Schaffer RN RN lg3 April Ortizj6 Megan Franklin RN RN vc1 Suarez, Lorenzo ls5 Bethel Dorado MD MD sp4 Corrections: (The following items were deleted from the chart) 05/01 22:20 22:18 PSHx: None; vc1 vc1 23:15 23:14 Urinalysis+U.LAB.BRZ drawn and sent. ligia EDOH
[2023-05-02 05:01] VITALS: TEMP 99.6
[2023-05-02 05:12] VITALS: BP 109/61; O2SAT 97
--- NOTE | 2023-05-02 10:11 | RAD REPORT ---
EXAM DESCRIPTION: RAD - Chest Single View - 05/01/2023 11:27 pm CLINICAL HISTORY: 7 years Male, COUGH COMPARISON: None IMPRESSION: Chronic lung changes. No focal consolidation. No pleural effusion. No pneumothorax. Global cardiomegaly. No acute osseous abnormality. Electronically signed by: Ankush Saba DO 05/01/2023 11:33 PM ACCOUNT DEVELOPER Due to temporary technical issues with the PACS/Fluency reporting system, reports are being signed by the in house radiologist without review as a courtesy to ensure prompt reporting. The interpreting r adiologist is fully responsible for the content of the report.
== END 2023-05-02 04:47 | disposition home or self-care (01) ==
LOC: ER 22:08
DX: U07.1 COVID-19 (principal); I10 Essential (primary) hypertension; I48.91 Unspecified atrial fibrillation
CPT/HCPCS: 36415; 71045; 80053; 81001; 85025; 87635; 87804; 99285

== ENCOUNTER 2023-07-11 08:30 | Day surgery (SDC) | payer OTHER ==
[2023-07-09 15:31] LABS: Absolute Lymphocytes (CBC) 1.3 K/uL (0.7-4.9); Hematocrit 40.2 % (39.6-49.0); Lymphocytes % 20.7 % (15.3-44.8); MCV 93.6 fL (80-100); MPV 9.1 fL (7.6-11.3); Platelets 133 thou/uL (152-406)
[2023-07-09 15:33] LABS: Protime INR 1.09
[2023-07-09 15:46] LABS: Potassium 4.1 mEq/L (3.5-5.1)
[2023-07-11] MEDS ORDERED: NA CHLORIDE 0.9% 500 ML ONE (08:38)
[2023-07-11] MEDS ORDERED: HEPA 1000U/500MLS 2,000 UNIT/1,000 ML BAG IV ONE (10:19)
[2023-07-11] MEDS ORDERED: TICAGRELOR 90 MG TABLET PO ONE (10:20)
[2023-07-11] MEDS ORDERED: HEPARIN 10,000 UNIT/10 ML VIAL IV ONE (10:20)
[2023-07-11] MEDS ORDERED: FENTANYL CITR 100 MCG/2 ML ONE (10:20)
[2023-07-11] MEDS ORDERED: MIDAZOLAM HCL 2 MG/2 ML INJ ONE (10:20)
[2023-07-11] MEDS ORDERED: ASPIRIN 325 MG TAB ONE (10:21)
[2023-07-11] MEDS ORDERED: CLOPIDOGREL 75 MG TABLET ONE (10:21)
[2023-07-11] MEDS ORDERED: ATROPINE SULF 1 MG/10 ML SYR IV ONE (10:22)
[2023-07-11] MEDS ORDERED: LIDOCAINE 1% 20 ML MDV ONE (10:22)
[2023-07-11 13:19] VITALS: TEMP 97.9
--- NOTE | 2023-07-11 14:45 | EKG ---
Test Date: 2023-07-09 Test Time: 16:04:43 Apparel Sales Associate: ANDREWS MEASUREMENT RESULTS: Intervals: Rate: 71 ND: QRSD: 152 QT: 436 QTc: 473 [place]: P: ND: QRS: 83 T: 68 INTERPRETIVE STATEMENTS: Atrial fibrillation Right bundle branch block Septal infarct, age undetermined Abnormal ECG No previous ECG available for comparison Electronically Signed On 07-11-23 14:41:44 HAND SINGER by Anival Kidd
[2023-07-11 15:31] VITALS: BP 138/76; O2SAT 95
--- NOTE | 2023-07-12 00:49 | OP ---
Date of Procedure: 07/11/2023 Surgeon: LADARIUS PEÑA Procedure Performed: Peripheral angiogram with runoff. Indication: Peripheral vascular disease. Access: Right femoral artery 6-Mauritian, closed with manual pressure. Complications: None. Bleeding: Less than 20 mL. Anesthesia: Total sedation time was 50 minutes. Description Of Procedure: After risks, benefits, and alternatives were explained, the patient agreed to proceed and signed informed consent. The patient was [facility], prepped and draped in usual sterile fashion. Then, I accessed the right femoral and common fem oral artery using micropuncture kit, ultrasound guidance, fluoroscopy, placed a 6-M[place]itian [place] she ath, and took the Omni Flush catheter in distal aorta, performed peripheral angiogram runoff and then crossed the left side and performed selective angiogram of the left lower extremity and then removed the catheter and the sheath. Manual pressure was used for closure with good hemostasis. Findings: 1.Distal aorta widely patent. 2.Right lower extremity: Right common iliac, external iliac, common femoral were widely patent with out significant disease and the right SFA is widely patent and to the distal portion, there is focal 30% to 40% stenosis. Anterior tibial is proximally occluded, peroneal also is occluded in the mid to distal segment, and the posterior tibial is widely open. 3.Left lower extremity: Left common iliac widely patent. Left external iliac is patent. Left comm on femoral artery has focal 90% stenosis, heavily calcified. Left SFA and profunda were widely paten t. Three-vessel runoff below the knee showed an inclusion of anterior tibial, posterior tibial arter ies, and the peroneal artery has diffuse 90% stenosis. Conclusion: Severe peripheral vascular disease involving the left lower extremity. Plan: To intervene on the right common femoral artery. We will check wave lithotripsy and balloon a ngioplasty and then attempt to fix also the peroneal artery in the same session. Procedures to be do ne at [place]. /MODL Voice ID: [id number] Report ID: [id number]
== END 2023-07-11 14:10 | disposition home or self-care (01) ==
LOC: CCL 08:30
PROVIDERS: ATTEND Internal Medicine
DX: I70.213 Atherosclerosis of native arteries of extremities with intermittent claudication, bilateral legs (principal); I65.29 Occlusion and stenosis of unspecified carotid artery; I34.0 Nonrheumatic mitral (valve) insufficiency; E11.9 Type 2 diabetes mellitus without complications; I10 Essential (primary) hypertension; R09.89 Other specified symptoms and signs involving the circulatory and respiratory systems; I48.91 Unspecified atrial fibrillation; Z87.891 Personal history of nicotine dependence; Z79.01 Long term (current) use of anticoagulants
CPT/HCPCS: 93005; 85025; 80048; 36415; 83721; 85610; 85730; 75716; 75625; 36245; 76937; C1893; J2001; J2250; J3010; J7040; 36200; 75630; 99152; 99153; J0461